=== PATIENT | male | born 1955 | race African-American/Black ===

== ENCOUNTER 2019-06-03 23:02 | Emergency (ER) | payer OTHER, SELFPAY ==
--- NOTE | ~2019-06-03 | XR_ITS ---
EXAMINATION: XR shoulder LT min 2V EXAM DATE: 06/03/2019 23:52 INDICATION: No known recent injury provided at this time. Pain of the left shoulder. TECHNIQUE: The following left shoulder projections obtained: frontal projection with internal rotatio n, frontal projection with external rotation, Grashey, and scapular Y view (4+ views). There is no p rior study for comparison. FINDINGS: No evidence of left shoulder rotator cuff calcific tendinosis. There is mild to moderate g lenohumeral, moderate acromioclavicular joint primary osteoarthritis. There are no acute fractures or dislocations identified. There is no subcutaneous gas. The soft tissue is unremarkable. There ar e no radiopaque foreign bodies. IMPRESSION: Left shoulder osteoarthritis, moderate the acromioclavicular joint. Reviewed, dictated and finalized at location A. 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
[2019-06-03 23:35] VITALS: BP 136/52; PULSE 75; RESP 20; TEMP 36.7; O2SAT 99
--- NOTE | 2019-06-04 00:35 | ED.UPPEXIN ---
HPI - Extremity Injury (Upper) General Chief Complaint: Extremity Injury, Upper Stated Complaint: Left Shoulder Pain Time Seen by Provider: 06/04/19 00:22 Source: patient and RN notes reviewed Mode of arrival: ambulatory Limitations: no limitations History of Present Illness HPI narrative: Pt is a 64 y/o male presenting to the ED c/o shoulder pain. Pt reports he injured his lt shoulder while throwing a garbage bag into a dumpster last Thursday. Pt states there is significant pain with ROM of his lt shoulder. 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 HEAD: Normocephalic, atraumatic. EYES: PERRLA and EOMI. ENT: Nares clear, Mucous membranes moist. NECK: Supple. CHEST: Clear to auscultation. No respiratory distress. HEART: Regular rate and rhythm. No murmur heard. Normal peripheral pulses. EXTREMITIES: Painful ROM of the left shoulder SKIN: Warm, dry, no rash. NEURO: No focal deficits. Alert and oriented x3. PSYCH: Normal mood and affect. Course Course Emergency Course: informed pt about his Xray findings , advised him to take pain medications as prescribed ,follow with his PMD Vital Signs Vital signs: Vital Signs Temperature 36.7 C 06/03/19 23:35 Pulse Rate 75 06/03/19 23:35 Respiratory Rate 20 06/03/19 23:35 Blood Pressure 136/52 L 06/03/19 23:35 Pulse Oximetry 99 06/03/19 23:35 Temperature 36.7 C 06/03/19 23:35 Pulse Rate 75 06/03/19 23:35 Respiratory Rate 20 06/03/19 23:35 Blood Pressure 136/52 L 06/03/19 23:35 Pulse Oximetry 99 06/03/19 23:35 MDM - Extremity Injury (Upper) Imaging Data Radiologist's impression: ITS Impressions Shoulder X-Ray 06/03/19 23:55 IMPRESSION: Left shoulder osteoarthritis, moderate the acromioclavicular joint. Discharge Plan Discharge Clinical Impression: Left shoulder strain Patient Disposition: Home, Self-Care Condition: Stable Instructions: Arthralgia (ED) Prescriptions: New naproxen [Naprosyn] 500 mg tablet 500 mg PO BID Qty: 20 RF: 0 No Action lisinopril 5 mg tablet 5 mg PO DAILY Qty: 90 RF: 0 glimepiride 4 mg tablet 4 mg PO .TWICE DAILY Qty: 60 RF: 5 metformin 1,000 mg tablet 1,000 mg PO BID Qty: 60 RF: 5 Lantus U-100 Insulin 100 unit/mL solution 10 unit SUB-Q .QHS Qty: 10 RF: 0 (DME) pen needle, diabetic [BD Ultra-Fine Mini Pen Needle] 31 gauge x 3/16 needle See Rx Instructions .ROUTE .MEDSUPPLY Qty: 100 RF: 0 sildenafil [Viagra] 50 mg tablet 50 mg PO DAILY PRN (Reason: sexual activity) Qty: 5 RF: 0 Follow-up/Referrals: Grzegorz Perales MD [Primary Care Provider] - Time of Disposition: 00:44
== END 2019-06-04 00:50 | disposition home or self-care (01) ==
PROVIDERS: Emergency Provider Family Medicine; PCP Family Medicine
DX: S46.912A Strain of unspecified muscle, fascia and tendon at shoulder and upper arm level, left arm, initial encounter (principal); E11.65 Type 2 diabetes mellitus with hyperglycemia; I10 Essential (primary) hypertension; Z79.4 Long term (current) use of insulin; Z79.84 Long term (current) use of oral hypoglycemic drugs; M19.012 Primary osteoarthritis, left shoulder; X50.9XXA Other and unspecified overexertion or strenuous movements or postures, initial encounter
CPT/HCPCS: 73030; 99283

== ENCOUNTER 2019-06-21 09:29 | Outpatient (CLI) | payer OTHER, SELFPAY ==
[2019-06-21 10:00] LABS: Basophils Percent Auto 0.5 % (0.2-1.2); Eosinophils Absolute Auto 0.2 K/mm3 (0-0.3); Eosinophils Percent Auto 2.1 % (0-4.4); Hematocrit 41.9 % (42.0-52.0); Immature Granulocyte Absolute 0.02 K/mm3 (0.00-0.031); Immature Granulocyte Percent A 0.3 % (0-0.5); Lymphocytes Absolute Auto 2.16 K/mm3 (0.9-3.2); Mean Corpuscular HGB Conc 33.4 g/dl (32-36); Mean Corpuscular Hemoglobin 31.1 pg (26-34); Mean Corpuscular Volume 93.1 fl (80-100); Mean Platelet Volume 10.9 fl (7.4-10.4); Monocytes Absolute Auto 0.8 K/mm3 (0.1-0.6); Monocytes Percent Auto 10.7 % (2.6-8.5); Neutrophils Absolute Auto 4.3 K/mm3 (1.3-6.7); Neutrophils Percent Auto 57.4 % (45.5-73.1); Platelet Count Result 160 k/mm3 (150-375); Red Cell Distribution Width 12.6 % (11.5-14.5); White Blood Count 7.5 K/mm3 (4.5-10.0)
[2019-06-21 10:10] LABS: Hemoglobin A1C 10.6 % (<5.7)
[2019-06-21 10:12] LABS: Alanine Aminotransferase 25 U/L (4-50); Albumin Level 3.8 g/dL (3.5-5.1); Alkaline Phosphatase 82 U/L (38-126); Aspartate Amino Transferase 30 U/L (17-59); Bilirubin,Total 0.3 mg/dL (0.2-1.3); Blood Urea Nitrogen 12 mg/dL (9-20); Calcium 8.7 mg/dL (8.4-10.2); Carbon Dioxide 25 mmol/L (22-30); Chloride 103 mmol/L (98-107); Estimated Glomerular Filt Rate > 60; Glucose 295 mg/dL (75-110); Sodium 137 mmol/L (137-145)
[2019-06-21 10:35] LABS: Iron 99 ug/dL (49-181)
[2019-06-21 10:46] LABS: Percent Iron Saturation 34 % (20-50)
[2019-06-21 11:18] LABS: Folic Acid 8.5 ng/mL (2.76->20)
== END 2019-06-21 09:30 | disposition home or self-care (01) ==
PROVIDERS: PCP Family Medicine; Visit Provider Physician Assistant
DX: D64.9 Anemia, unspecified (principal); E11.65 Type 2 diabetes mellitus with hyperglycemia; I10 Essential (primary) hypertension
CPT/HCPCS: 36415; 80053; 82607; 82728; 82746; 83036; 83540; 83550; 85025

== ENCOUNTER 2019-10-04 13:59 | Outpatient (RCR) | payer OTHER, SELFPAY | END 2020-01-02 23:59 | disposition home or self-care (01) | LOC: ANHDMC 13:59 | PROVIDERS: PCP Family Medicine; Visit Provider Family Medicine | DX: E11.9 Type 2 diabetes mellitus without complications (principal); Z71.89 Other specified counseling; Z79.84 Long term (current) use of oral hypoglycemic drugs | CPT/HCPCS: G0108 ==

== ENCOUNTER 2019-10-21 08:04 | Outpatient (CLI) | payer OTHER, SELFPAY ==
[2019-10-21 08:54] LABS: Basophils Absolute Auto 0.1 K/mm3 (0.0-0.1); Basophils Percent Auto 0.7 % (0.2-1.2); Eosinophils Absolute Auto 0.1 K/mm3 (0-0.3); Eosinophils Percent Auto 1.4 % (0-4.4); Hemoglobin 13.3 g/dL (14.0-18.0); Immature Granulocyte Absolute 0.02 K/mm3 (0.00-0.031); Immature Granulocyte Percent A 0.3 % (0-0.5); Lymphocytes Percent Auto 34.2 % (18.3-44.2); Mean Corpuscular HGB Conc 33.3 g/dl (32-36); Mean Corpuscular Hemoglobin 30.9 pg (26-34); Mean Corpuscular Volume 92.8 fl (80-100); Monocytes Absolute Auto 0.6 K/mm3 (0.1-0.6); Monocytes Percent Auto 7.7 % (2.6-8.5); Neutrophils Absolute Auto 4.1 K/mm3 (1.3-6.7); Neutrophils Percent Auto 55.7 % (45.5-73.1); Platelet Count Result 168 k/mm3 (150-375); Red Blood Count 4.31 M/mm3 (4.6-6.20); White Blood Count 7.3 K/mm3 (4.5-10.0)
[2019-10-21 09:08] LABS: Hemoglobin A1C 10.6 % (<5.7)
[2019-10-21 09:16] LABS: Alanine Aminotransferase 16 U/L (4-50); Alkaline Phosphatase 86 U/L (38-126); Anion Gap 12.9 mmol/L (7-16); Aspartate Amino Transferase 22 U/L (17-59); Bilirubin,Total 0.3 mg/dL (0.2-1.3); Blood Urea Nitrogen 9 mg/dL (9-20); Calcium 8.6 mg/dL (8.4-10.2); Carbon Dioxide 25 mmol/L (22-30); Chloride 104 mmol/L (98-107); Estimated Glomerular Filt Rate > 60; Glucose 271 mg/dL (75-110); Potassium 3.9 mmol/L (3.4-5.0); Sodium 138 mmol/L (137-145)
== END 2019-10-21 08:05 | disposition home or self-care (01) ==
PROVIDERS: PCP Family Medicine; Visit Provider Physician Assistant
DX: D64.9 Anemia, unspecified (principal); E11.65 Type 2 diabetes mellitus with hyperglycemia; I10 Essential (primary) hypertension
CPT/HCPCS: 36415; 80053; 83036; 85025

== ENCOUNTER 2019-10-31 01:38 | Outpatient (CLI) | payer OTHER, SELFPAY ==
[2019-10-31 16:16] LABS: SARS-CoV-2 RNA PCR Negative
== END 2019-10-31 01:39 | disposition home or self-care (01) ==
LOC: ANHCOVIDDT 01:38
PROVIDERS: PCP Family Medicine; Visit Provider Internal Medicine Gastroenterology
DX: Z01.812 Encounter for preprocedural laboratory examination (principal); Z11.59 Encounter for screening for other viral diseases
CPT/HCPCS: 87635; C9803; U0003

== ENCOUNTER 2019-11-02 01:00 | Day surgery (SDC) | payer OTHER, SELFPAY ==
[2019-10-25 14:32] VITALS: BMI 22.4
[2019-11-02 09:55] VITALS: BP 148/76; PULSE 65; TEMP 36.8; O2SAT 100
[2019-11-02] MEDS: LACTATED RINGERS 1,000 ML 150 ML IV CONT (10:06)
--- NOTE | 2019-11-02 10:06 | WPDANESEPPF ---
Anes - Initial Pre Proc Eval Procedure: Operation Date: 11/02/19 10:30 Proposed Procedures p Colonoscopy - Mark Tinajero MD Date/Time: 11/02/19 10:06 Surgeon: Mark Tinajero MD Pre Op Diagnosis: anemia Patient Data Age: 64 Gender: M Height: 5 ft 7 in Weight: 63.5 kg Last Vital Signs Temp 98.3 F 11/02/19 09:55 Pulse 65 11/02/19 09:55 BP 148/76 H 11/02/19 09:55 Pulse Ox 100 11/02/19 09:55 Allergies Allergy/AdvReac Type Severity Reaction Status Date / Time No Known Allergies Allergy Verified 10/25/19 14:30 Home Medications Medication Instructions Recorded Confirmed Type glimepiride 4 mg tablet 4 mg PO .TWICE DAILY #60 tablet 03/03/19 10/25/19 Rx metformin 1,000 mg tablet 1,000 mg PO BID #60 tablet 03/03/19 10/25/19 Rx lisinopril 5 mg tablet 5 mg PO DAILY #90 tablet 06/14/19 10/25/19 Rx rosuvastatin 5 mg tablet 5 mg PO DAILY #90 tablet 10/20/19 10/25/19 Rx sildenafil 50 mg tablet 50 mg PO DAILY PRN #7 tablet 10/20/19 10/25/19 Rx Patient hx anesthesia problems: none Family hx anesthesia problems: none PMFSH Past Medical History Medical History (Updated 11/02/19 @ 10:06 by Rosas Muller MD) Anemia Erectile dysfunction Essential hypertension Type 2 diabetes mellitus with hyperglycemia Surgical History Surgical History No significant past surgical history Social History Social History Smoking status: Never smoker Alcohol intake: never Substance use: never Substance use type: does not use Gender identity (if verbalized by the patient): Male Anes - Eval Final PreProcedure Day of Procedure 11/02/19 10:06 Patient weight: normal Heart: regular rate and rhythm Lungs: clear to auscultation Airway: Mallampati scale class II Neurological: alert and oriented Last oral intake: >/= 8 hours ASA classification: III Emergent: no Anesthetic plan: proceed Anesthesia type and monitoring: general GIVS and standard monitoring Informed Consent: The patient's anesthetic plan and its attendant risks and benefits were discussed with the patient/family/POA. Questions were solicited and answers provided to the satisfaction of the patient/family/POA.
[2019-11-02 10:09] LABS: Glucose Point of Care 217 (65-105)
--- NOTE | 2019-11-02 10:18 | P.HP_ITS ---
History of Present Illness History of Present Illness Consent: Risks, benefits, and alternatives have been discussed and questions answered. Patient agrees to proceed with procedure. Chief complaint: anemia Narrative: Chris Aguilar is a 64 year old male here for screening colonoscopy. He has been found to be anemic. His last colonoscopy was about 10 years ago [facility] Past Medical History Medical History Anemia Erectile dysfunction Essential hypertension Type 2 diabetes mellitus with hyperglycemia Surgical History Surgical History No significant past surgical history Social History Social History Smoking status: Never smoker Alcohol intake: never Substance use: never Substance use type: does not use Gender identity (if verbalized by the patient): Male Meds Home Medications and Allergies Home Medications Medication Instructions Recorded Confirmed Type glimepiride 4 mg tablet 4 mg PO .TWICE DAILY #60 tablet 03/03/19 10/25/19 Rx metformin 1,000 mg tablet 1,000 mg PO BID #60 tablet 03/03/19 10/25/19 Rx lisinopril 5 mg tablet 5 mg PO DAILY #90 tablet 06/14/19 10/25/19 Rx rosuvastatin 5 mg tablet 5 mg PO DAILY #90 tablet 10/20/19 10/25/19 Rx sildenafil 50 mg tablet 50 mg PO DAILY PRN #7 tablet 10/20/19 10/25/19 Rx Allergies Allergy/AdvReac Type Severity Reaction Status Date / Time No Known Allergies Allergy Verified 10/25/19 14:30 Vital Signs Vital Signs - 24 hr 11/02/19 09:55 Temperature 36.8 C Pulse Rate 65 Blood Pressure 148/76 H Pulse Oximetry 100 Exam Resp: Auscultation: clear to auscultation bilaterally Cardio: Rate: regular rate Rhythm: regular rhythm GI: GI Palp: Yes Soft to palpation and No Tenderness to palpation present (GI) Assessment and Plan Assessment and plan (1) Colon cancer screening: Code(s): Z12.11 - Encounter for screening for malignant neoplasm of colon Status: Acute Assessment and Plan: Colonoscopy with possible biopsy or polypectomy or cautery or injection of substances.
[2019-11-02 10:44] VITALS: BP 96/65; PULSE 78; RESP 26; O2SAT 99
[2019-11-02 10:54] VITALS: BP 94/63; PULSE 72; RESP 25; O2SAT 98
[2019-11-02 11:04] VITALS: BP 107/67; PULSE 64; RESP 23; O2SAT 98
== END 2019-11-02 11:29 | disposition home or self-care (01) ==
PROVIDERS: PCP Family Medicine; Visit Provider Internal Medicine Gastroenterology
PROC: 0DJD8ZZ Inspection of Lower Intestinal Tract, Via Natural or Artificial Opening Endoscopic (ICD-10-PCS; CPT 45378; principal; 2019-11-02 10:30)
DX: Z12.11 Encounter for screening for malignant neoplasm of colon (principal); D64.9 Anemia, unspecified; I10 Essential (primary) hypertension; E11.9 Type 2 diabetes mellitus without complications; N52.9 Male erectile dysfunction, unspecified; Z79.84 Long term (current) use of oral hypoglycemic drugs
CPT/HCPCS: 45378; J2704; J7120

== ENCOUNTER 2020-01-12 09:15 | Outpatient (RCR) | payer OTHER, SELFPAY | END 2020-03-14 13:43 | disposition home or self-care (01) | LOC: ANHDMC 09:15 | PROVIDERS: PCP Family Medicine; Visit Provider Family Medicine | DX: E11.9 Type 2 diabetes mellitus without complications (principal); Z71.89 Other specified counseling | CPT/HCPCS: G0108 ==

== ENCOUNTER 2020-03-21 09:29 | Outpatient (CLI) | payer OTHER, SELFPAY ==
[2020-03-21 10:02] LABS: Hematocrit 39.6 % (42.0-52.0); Hemoglobin 13.5 g/dL (14.0-18.0); Mean Corpuscular HGB Conc 34.1 g/dl (32-36); Mean Corpuscular Volume 93.8 fl (80-100); Mean Platelet Volume 10.6 fl (7.4-10.4); Platelet Count Result 175 k/mm3 (150-375); Red Blood Count 4.22 M/mm3 (4.6-6.20); Red Cell Distribution Width 12.5 % (11.5-14.5)
[2020-03-21 10:17] LABS: Alanine Aminotransferase 13 U/L (4-50); Albumin Level 3.6 g/dL (3.5-5.1); Alkaline Phosphatase 75 U/L (38-126); Anion Gap 6 mmol/L (8-16); Aspartate Amino Transferase 22 U/L (17-59); Bilirubin,Total 0.3 mg/dL (0.2-1.3); Blood Urea Nitrogen 9 mg/dL (9-20); Calcium 8.5 mg/dL (8.4-10.2); Carbon Dioxide 29 mmol/L (22-30); Chloride 105 mmol/L (98-107); Estimated Glomerular Filt Rate > 60; Glucose 167 mg/dL (75-110); Sodium 140 mmol/L (137-145)
== END 2020-03-21 09:30 | disposition home or self-care (01) ==
LOC: ANHLAB 09:34
PROVIDERS: PCP Family Medicine; Visit Provider Family Medicine
DX: E11.65 Type 2 diabetes mellitus with hyperglycemia (principal); D64.9 Anemia, unspecified
CPT/HCPCS: 36415; 80053; 83036; 85027

== ENCOUNTER 2020-09-15 08:05 | Outpatient (CLI) | payer OTHER, SELFPAY ==
[2020-09-15 08:57] LABS: Hemoglobin A1C 9.7 % (<5.7)
[2020-09-15 08:58] LABS: Alanine Aminotransferase 16 U/L (4-50); Albumin Level 4.1 g/dL (3.5-5.1); Alkaline Phosphatase 92 U/L (38-126); Anion Gap 7 mmol/L (8-16); Aspartate Amino Transferase 26 U/L (17-59); Bilirubin,Total 0.3 mg/dL (0.2-1.3); Blood Urea Nitrogen 10 mg/dL (9-20); Carbon Dioxide 31 mmol/L (22-30); Chloride 104 mmol/L (98-107); Estimated Glomerular Filt Rate > 60; Glucose 230 mg/dL (75-110); Potassium 3.9 mmol/L (3.4-5.0); Sodium 142 mmol/L (137-145)
== END 2020-09-15 08:06 | disposition home or self-care (01) ==
LOC: ANHLAB 08:08
PROVIDERS: PCP Family Medicine; Visit Provider Physician Assistant
DX: E11.65 Type 2 diabetes mellitus with hyperglycemia (principal); I10 Essential (primary) hypertension
CPT/HCPCS: 36415; 80053; 83036

== ENCOUNTER 2021-01-17 08:04 | Outpatient (CLI) | payer OTHER, SELFPAY ==
[2021-01-17 08:33] LABS: Basophils Percent Auto 0.5 % (0.2-1.2); Eosinophils Absolute Auto 0.2 K/mm3 (0-0.3); Eosinophils Percent Auto 1.9 % (0-4.4); Hematocrit 42.8 % (42.0-52.0); Hemoglobin 14.1 g/dL (14.0-18.0); Immature Granulocyte Absolute 0.02 K/mm3 (0.00-0.031); Immature Granulocyte Percent A 0.2 % (0-0.5); Lymphocytes Absolute Auto 2.62 K/mm3 (0.9-3.2); Lymphocytes Percent Auto 32.5 % (18.3-44.2); Mean Corpuscular HGB Conc 32.9 g/dl (32-36); Mean Corpuscular Hemoglobin 31.5 pg (26-34); Mean Corpuscular Volume 95.7 fl (80-100); Mean Platelet Volume 10.6 fl (7.4-10.4); Monocytes Absolute Auto 0.6 K/mm3 (0.1-0.6); Monocytes Percent Auto 7.8 % (2.6-8.5); Neutrophils Absolute Auto 4.6 K/mm3 (1.3-6.7); Neutrophils Percent Auto 57.1 % (45.5-73.1); Platelet Count Result 194 k/mm3 (150-375); Red Blood Count 4.47 M/mm3 (4.6-6.20); Red Cell Distribution Width 13.2 % (11.5-14.5); White Blood Count 8.1 K/mm3 (4.5-10.0)
[2021-01-17 08:36] LABS: Add Urine Microscopic? YES; Appearance Urine Clear (Clear); Bilirubin Urine Negative (Negative); Blood Urine Negative (Negative); Color Urine Straw (Yellow); Glucose Urine UA 3+ mg/dL (Negative); Ketones Urine Negative (Negative); Leukocyte Esterase Ur Negative LEU/UL (NEGATIVE); Nitrate Urine Negative (Negative); Protein Urine Negative (Negative); RBC Urine 0-2 /hpf (0-2); Urobilinogen Urine Negative mg/dL (<2.0); WBC Urine 0-3 /hpf (0-3)
[2021-01-17 08:45] LABS: Alanine Aminotransferase 21 U/L (4-50); Alkaline Phosphatase 92 U/L (38-126); Anion Gap 10 mmol/L (8-16); Aspartate Amino Transferase 25 U/L (17-59); Bilirubin,Total 0.5 mg/dL (0.2-1.3); Blood Urea Nitrogen 9 mg/dL (9-20); Calcium 9.1 mg/dL (8.4-10.2); Carbon Dioxide 29 mmol/L (22-30); Chloride 103 mmol/L (98-107); Cholesterol 206 mg/dL (0-200); Estimated Glomerular Filt Rate > 60; Glucose 227 mg/dL (65-110); HDL Direct 45 mg/dL; Sodium 142 mmol/L (137-145); Triglycerides 109 mg/dL (<150)
[2021-01-17 08:55] LABS: LDL Cholesterol Direct 124 mg/dL
[2021-01-17 08:55] LABS: Specific Grav Ur 1.033 (1.001-1.035)
[2021-01-17 09:15] LABS: Prostate Specific Antigen 3.5 ng/mL (< OR = 4.0)
[2021-01-17 09:21] LABS: Hemoglobin A1C 11.3 % (<5.7)
[2021-01-17 09:48] LABS: Creatinine Urine 92.7 mg/dL
[2021-01-17 09:53] LABS: Microalbumin Urine Random 21.3 mg/L (0-16.7)
== END 2021-01-17 08:05 | disposition home or self-care (01) ==
PROVIDERS: PCP Family Medicine; Visit Provider Physician Assistant
DX: Z00.00 Encounter for general adult medical examination without abnormal findings (principal); D64.9 Anemia, unspecified; E11.65 Type 2 diabetes mellitus with hyperglycemia; I10 Essential (primary) hypertension; N52.9 Male erectile dysfunction, unspecified; R35.0 Frequency of micturition
CPT/HCPCS: 36415; 80053; 80061; 81001; 82043; 83036; 84153; 84443; 85025; 87086

== ENCOUNTER 2021-02-16 06:13 | Emergency (ER) | payer OTHER, SELFPAY ==
--- NOTE | ~2021-02-16 | XR_ITS ---
EXAMINATION: XR foot RT 2V EXAM DATE: 02/16/2021 07:13 INDICATION: Evaluate osteomyelitis 1st digit. TECHNIQUE: Frontal and lateral projections of the right foot. There is no prior study for compariso n. FINDINGS: There are no bony erosions identified. There are no acute right foot fractures or dislocat ions identified. There is no subcutaneous gas. There are arterial calcifications, arteriosclerosis. There are no radiopaque foreign bodies. There is mild right 1st metatarsophalangeal joint primary osteoarthritis. 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 IMPRESSION: Chronic findings as above. Reviewed, dictated and finalized at location A. 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
[2021-02-16 06:16] VITALS: BP 142/66; PULSE 70; RESP 18; TEMP 35.9; O2SAT 100
[2021-02-16 06:30] VITALS: PULSE 81; RESP 18; TEMP 36.7; O2SAT 97
[2021-02-16 06:36] VITALS: BP 125/72; PULSE 62
--- NOTE | 2021-02-16 07:07 | ED.WOUNDLAC ---
HPI - Wound/Laceration General Chief Complaint: Wound/Laceration <Howard Hill MD - Last Filed: 02/16/21 07:27> Stated Complaint: right great toe pain <Howard Hill MD - Last Filed: 02/16/21 07:27> Time Seen by Provider: 02/16/21 07:04 <Howard Hill MD - Last Filed: 02/16/21 07:27> Source: patient <Howard Hill MD - Last Filed: 02/16/21 07:27> History of Present Illness HPI narrative: Patient presents with right great toe pain. Reports he had a pedicure approximately 2 weeks ago ever since then he has had toe pain which is getting progressively worse. He was concerned he has a history of diabetes. Pain is achy sharp, worse with walking around, no radiation. Denies any fevers, nausea, vomiting. <Howard Hill MD - Last Filed: 02/16/21 07:27> Related Data Allergies/Adverse Reactions: Allergies Allergy/AdvReac Type Severity Reaction Status Date / Time No Known Allergies Allergy Verified 01/17/21 07:35 <Howard Hill MD - Last Filed: 02/16/21 07:27> Review of Systems Review of Systems: CONSTITUTIONAL: Denies fever, chills, or sweats. EYES: Denies visual changes, redness, or discharge. ENT: Denies rhinorrhea, congestion, sore throat, or otalgia. CARDIOVASCULAR: Denies chest pain, palpitations, or edema. RESPIRATORY: Denies cough or dyspnea. GASTROINTESTINAL: Denies abdominal pain, nausea, vomiting, or diarrhea. GENITOURINARY: Denies dysuria or hematuria. SKIN: Denies rash or itching. MUSCULOSKELETAL: Denies back pain, or myalgia. NEUROLOGIC: Denies headache, numbness, dizziness, or weakness. PSYCHIATRIC: Denies anxiety or depression. <Howard Hill MD - Last Filed: 02/16/21 07:27> All systems reviewed & are unremarkable except as noted in HPI and below <Howard Hill MD - Last Filed: 02/16/21 07:27> PMFSH Past Medical History Medical History: Medical History Anemia Erectile dysfunction Essential hypertension Type 2 diabetes mellitus with hyperglycemia <Howard Hill MD - Last Filed: 02/16/21 07:27> Surgical History Surgical History: Surgical History No significant past surgical history <Howard Hill MD - Last Filed: 02/16/21 07:27> Family History Family History: Family History Father Diabetes mellitus Mother Diabetes mellitus Sibling Diabetes mellitus <Howard Hill MD - Last Filed: 02/16/21 07:27> Social History Social History: Social History Second hand tobacco smoke exposure: No Alcohol intake: never Substance use: never Substance use type: does not use Gender identity (if verbalized by the patient): Male Sexual Orientation (if Verbalized by the Patient): Straight or Heterosexual <Howard Hill MD - Last Filed: 02/16/21 07:27> Exam Narrative: GENERAL: Well-appearing, well-nourished, and in no acute distress. HEAD: Normocephalic, atraumatic. EYES: PERRLA and EOMI. ENT: Nares clear, no rhinorrhea or epistaxis. Mucous membranes moist. NECK: Supple. No masses. No JVD EXTREMITIES: Minor swelling and erythema to the medial aspect of the right great toe SKIN: Warm, dry, no rash. NEURO: No focal deficits. Alert and oriented x3. PSYCH: Normal mood and affect. <Howard Hill MD - Last Filed: 02/16/21 07:27> Course Reevaluation(s) Reevaluation #1: Exam is most concerning for paronychia labs imaging ordered to evaluate for osteomyelitis given patient's history of diabetes and duration of symptoms. Needle aspiration attempted there is no purulent drainage returned. Patient likely appropriate for outpatient antibiotics and follow-up with podiatry. Patient signed out to Dr. Fox pending labs and imaging <Howard Hill MD - Last Filed: 02/16/21 07:27>
[2021-02-16 07:26] LABS: Basophils Absolute Auto 0.1 K/mm3 (0.0-0.1); Basophils Percent Auto 0.7 % (0.2-1.2); Eosinophils Absolute Auto 0.2 K/mm3 (0-0.3); Eosinophils Percent Auto 2.1 % (0-4.4); Hematocrit 36.4 % (42.0-52.0); Hemoglobin 12.3 g/dL (14.0-18.0); Immature Granulocyte Absolute 0.01 K/mm3 (0.00-0.031); Immature Granulocyte Percent A 0.1 % (0-0.5); Lymphocytes Absolute Auto 2.59 K/mm3 (0.9-3.2); Lymphocytes Percent Auto 35.9 % (18.3-44.2); Mean Corpuscular HGB Conc 33.8 g/dl (32-36); Mean Corpuscular Hemoglobin 32.1 pg (26-34); Mean Platelet Volume 10.4 fl (7.4-10.4); Monocytes Absolute Auto 0.7 K/mm3 (0.1-0.6); Monocytes Percent Auto 9.7 % (2.6-8.5); Neutrophils Absolute Auto 3.7 K/mm3 (1.3-6.7); Neutrophils Percent Auto 51.5 % (45.5-73.1); Platelet Count Result 163 k/mm3 (150-375); Red Blood Count 3.83 M/mm3 (4.6-6.20); White Blood Count 7.2 K/mm3 (4.5-10.0)
[2021-02-16 07:46] LABS: Alanine Aminotransferase 15 U/L (4-50); Albumin Level 3.6 g/dL (3.5-5.1); Alkaline Phosphatase 70 U/L (38-126); Anion Gap 5 mmol/L (8-16); Aspartate Amino Transferase 23 U/L (17-59); Bilirubin,Total 0.2 mg/dL (0.2-1.3); Blood Urea Nitrogen 13 mg/dL (9-20); CRP < 0.5 mg/dL (<1.0); Calcium 8.8 mg/dL (8.4-10.2); Carbon Dioxide 25 mmol/L (22-30); Chloride 104 mmol/L (98-107); Estimated CRCL calculation 76 ml/min; Estimated Glomerular Filt Rate > 60; Glucose 190 mg/dL (65-110); Potassium 3.8 mmol/L (3.4-5.0); Sodium 134 mmol/L (137-145)
[2021-02-16 08:23] LABS: Erythrocyte Sedimentation Rate 33 mm/hr (0-20)
== END 2021-02-16 08:15 | disposition home or self-care (01) ==
PROVIDERS: Emergency Provider Emergency Medicine; PCP Family Medicine
DX: L03.031 Cellulitis of right toe (principal); I10 Essential (primary) hypertension; E11.9 Type 2 diabetes mellitus without complications; D64.9 Anemia, unspecified; Z79.84 Long term (current) use of oral hypoglycemic drugs
CPT/HCPCS: 10160; 36415; 73620; 80053; 85025; 85652; 86140; 99283

== ENCOUNTER 2021-06-08 07:44 | Outpatient (CLI) | payer OTHER, SELFPAY ==
[2021-06-08 08:53] LABS: Alanine Aminotransferase 16 U/L (4-50); Albumin Level 3.7 g/dL (3.5-5.1); Alkaline Phosphatase 77 U/L (38-126); Anion Gap 3 mmol/L (8-16); Aspartate Amino Transferase 24 U/L (17-59); Bilirubin,Total 0.2 mg/dL (0.2-1.3); Blood Urea Nitrogen 13 mg/dL (9-20); Calcium 8.5 mg/dL (8.4-10.2); Carbon Dioxide 28 mmol/L (22-30); Chloride 107 mmol/L (98-107); Estimated Glomerular Filt Rate > 60; Glucose 214 mg/dL (65-110); Potassium 3.9 mmol/L (3.4-5.0); Sodium 138 mmol/L (137-145)
[2021-06-08 10:00] LABS: Hemoglobin A1C 10.3 % (<5.7)
== END 2021-06-08 07:45 | disposition home or self-care (01) ==
PROVIDERS: PCP Family Medicine; Visit Provider Physician Assistant
DX: E11.65 Type 2 diabetes mellitus with hyperglycemia (principal); I10 Essential (primary) hypertension
CPT/HCPCS: 36415; 80053; 83036

== ENCOUNTER 2021-06-27 07:32 | Outpatient (CLI) | payer OTHER, SELFPAY ==
[2021-06-27 08:55] LABS: Anion Gap 9 mmol/L (8-16); Blood Urea Nitrogen 14 mg/dL (9-20); Calcium 8.6 mg/dL (8.4-10.2); Carbon Dioxide 26 mmol/L (22-30); Chloride 104 mmol/L (98-107); Estimated Glomerular Filt Rate > 60; Glucose 105 mg/dL (65-110); Sodium 139 mmol/L (137-145)
[2021-06-30 08:19] LABS: C-Peptide 0.77 ng/mL (0.80-3.85)
[2021-06-30 19:34] LABS: Glutamic acid decarboxylase AA <5 IU/mL (<5)
== END 2021-06-27 07:33 | disposition home or self-care (01) ==
LOC: ANHLAB 07:34
PROVIDERS: PCP Family Medicine; Visit Provider Internal Medicine Endocrinology, Diabetes & Metabolism
DX: E11.65 Type 2 diabetes mellitus with hyperglycemia (principal); Z71.3 Dietary counseling and surveillance; E78.5 Hyperlipidemia, unspecified; I10 Essential (primary) hypertension
CPT/HCPCS: 36415; 80048; 84681; 86341

== ENCOUNTER 2021-07-19 08:28 | Emergency (ER) | payer OTHER, SELFPAY ==
[2021-07-19] VITALS (7 sets, daily range): BP systolic 125–162; BP diastolic 70–109; PULSE 55–74; RESP 12–20; TEMP 37; O2SAT 100
--- NOTE | ~2021-07-19 | XR_ITS ---
EXAMINATION: XR chest 2V EXAM DATE: 07/19/2021 09:01 INDICATION: Dizziness, headache, nausea. Hx of HTN . TECHNIQUE: Frontal and lateral projections of the chest obtained and reviewed. Comparison is made to prior examination from 03/10/2018. FINDINGS: The lungs are clear. There are no pleural effusions. The cardiomediastinal silhouette is within normal limits. There is no pneumothorax suspected. The bones and soft tissues are unremarkab le. IMPRESSION: Unremarkable chest x-ray exam. Reviewed, dictated and finalized at location A.
--- NOTE | ~2021-07-19 | CT_ITS ---
EXAMINATION: CT brain wo [facility] EXAM DATE: 07/19/2021 10:15 INDICATION: Dizziness, HOLCOMB, night sweats. TECHNIQUE: Spiral CT of the head was performed without contrast. Axial, coronal and sagittal images were reviewed. The dose-length product (DLP) for this examination was 605.33 mGy-cm. The exposure w as tailored according to patient size, and iterative reconstruction (ASIR) was used as additional dos e reduction technique. There is no prior study for comparison. FINDINGS: There is no acute intraparenchymal hemorrhage. No evidence of intraparenchymal brain mass lesion. No evidence of acute infarction. There is no mass effect or midline shift. The ventricles are normal in size. There are no extra-axial collections. There are no acute calvarial fractures. P samir has had bilateral ocular lens surgery. Soft tissue is unremarkable. Only small portion of th e maxillary sinuses were imaged and there is evidence of right maxillary sinus mucoperiosteal thicken ing. IMPRESSION: 1. No acute intracranial findings. 2. Right maxillary sinus mucoperiosteal thickening. Reviewed, dictated and finalized at location A.
--- NOTE | 2021-07-19 08:43 | ECG_ITS ---
Measurements Intervals [place] Rate: 75 P: 51 FL: 178 QRS: 20 QRSD: 85 T: 5 QT: 375 QTc: 420 Interpretive Statements SINUS RHYTHM NORMAL ECG NO PREVIOUS ECG AVAILABLE FOR COMPARISON Electronically Signed On 07-19-2021 15:11:18 CDT by Sonido Reyes M.D.
--- NOTE | 2021-07-19 08:49 | PC.NURSE ---
Pt to XRAY via stretcher at this time.
[2021-07-19 08:59] LABS: Basophils Percent Auto 0.4 % (0.2-1.2); Eosinophils Absolute Auto 0.2 K/mm3 (0-0.3); Eosinophils Percent Auto 2.1 % (0-4.4); Hematocrit 41.5 % (42.0-52.0); Hemoglobin 13.6 g/dL (14.0-18.0); Immature Granulocyte Absolute 0.01 K/mm3 (0.00-0.031); Immature Granulocyte Percent A 0.1 % (0-0.5); Lymphocytes Absolute Auto 2.52 K/mm3 (0.9-3.2); Lymphocytes Percent Auto 34.6 % (18.3-44.2); Mean Corpuscular HGB Conc 32.8 g/dl (32-36); Mean Corpuscular Hemoglobin 31.3 pg (26-34); Mean Corpuscular Volume 95.6 fl (80-100); Mean Platelet Volume 10.6 fl (7.4-10.4); Monocytes Absolute Auto 0.8 K/mm3 (0.1-0.6); Neutrophils Absolute Auto 3.8 K/mm3 (1.3-6.7); Neutrophils Percent Auto 51.8 % (45.5-73.1); Platelet Count Result 190 k/mm3 (150-375); Red Blood Count 4.34 M/mm3 (4.6-6.20); Red Cell Distribution Width 13.3 % (11.5-14.5); White Blood Count 7.3 K/mm3 (4.5-10.0)
--- NOTE | 2021-07-19 09:00 | ED.DIZZY ---
HPI - Dizziness General Chief Complaint: Dizziness <HENRRY Bangura Last Filed: 07/19/21 17:33> Stated Complaint: dizziness/holcomb <HENRRY Bangura Last Filed: 07/19/21 17:33> Time Seen by Provider: 07/19/21 09:00 <HENRRY Bangura Last Filed: 07/19/21 17:33> Source: patient <HENRRY Bangura Last Filed: 07/19/21 17:33> Mode of arrival: ambulatory <HENRRY Bangura Last Filed: 07/19/21 17:33> Limitations: no limitations <HENRRY Bangura Last Filed: 07/19/21 17:33> History of Present Illness HPI Narrative: Patient is a 66 y/o male who presents to the ED with c/o dizziness, headache, chest pain. Patient reports having a headache and dizziness since Thursday. He states the headache began first and then he started to feel dizzy when standing up. He describes the dizziness as he feels lightheaded like he is off balance and going to fall, but he has not fallen. No recent injury. He states the headache has been mild. He has not tried anything for this. Patient also reports having intermittent brief chest pain for the past 1 week. He describes the pain as mild, midsternal, sharp, stating that it lasts about 1 minute at a time. He has not had pain every day. Denies any pain currently. Patient also denies any vision changes, shortness of breath, nausea, vomiting, abdominal pain, weakness, numbness, BLE pain or edema. He does mention he has been under increased stress lately with work and his brother passing away a few weeks ago. He also mentions his son 1 year. ago. He has been feeling slightly down and depressed recently, but he denies any severe symptoms, SI, or HI. <HENRRY Bangura Last Filed: 07/19/21 17:33> Related Data Allergies/Adverse Reactions: Allergies Allergy/AdvReac Type Severity Reaction Status Date / Time No Known Allergies Allergy Verified 07/19/21 08:42 <Delilah Segura PA-C - Last Filed: 07/19/21 17:33> Review of Systems Review of Systems: CONSTITUTIONAL: Denies fever, chills, or sweats. EYES: Denies visual changes. ENT: Denies rhinorrhea, congestion, sore throat, or otalgia. CARDIOVASCULAR: Reports intermittent midsternal CP. Denies BLE edema. RESPIRATORY: Denies dyspnea. GASTROINTESTINAL: Denies abdominal pain, nausea, vomiting, or diarrhea. MUSCULOSKELETAL: Denies back pain, joint pain, or myalgia. NEUROLOGIC: Reports dizziness, lightheadedness, HOLCOMB. Denies numbness, or weakness. PSYCHIATRIC: Reports depression. Denies SI, HI, AVH. <Delilah Segura PA-C - Last Filed: 07/19/21 17:33> All systems reviewed & are unremarkable except as noted in HPI and below <Delilah Segura PA-C - Last Filed: 07/19/21 17:33> [facility] Past Medical History Medical History: Medical History Anemia Erectile dysfunction Essential hypertension Type 2 diabetes mellitus with hyperglycemia <Delilah Segura PA-C - Last Filed: 07/19/21 17:33> Surgical History Surgical History: Surgical History History of cataract surgery Hx of appendectomy No significant past surgical history <Delilah Segura PA-C - Last Filed: 07/19/21 17:33> Family History Family History: Family History Father Diabetes mellitus Mother Diabetes mellitus Sibling Diabetes mellitus <Delilah Segura PA-C - Last Filed: 07/19/21 17:33> Social History Social History: Social History Smoking status: Never smoker Second hand tobacco smoke exposure: No Alcohol intake: never Substance use: never Substance use type: does not use Gender identity (if verbalized by the patient): Male Sexual Orientation (if Verbalized by the Patient): Straight or Heterosexual <Delilah Segura PA-C - Last Filed: 07/19/21 17:33> Exam Jorge
[2021-07-19 09:10] LABS: Partial Thromboplastin Time 25.7 SECONDS (22.3-36.8); Prothrombin Time 12.8 Seconds (11.1-14.7)
[2021-07-19 09:11] LABS: Alanine Aminotransferase 20 U/L (4-50); Albumin Level 4.2 g/dL (3.5-5.1); Alkaline Phosphatase 70 U/L (38-126); Anion Gap 9 mmol/L (8-16); Aspartate Amino Transferase 34 U/L (17-59); Bilirubin,Total 0.5 mg/dL (0.2-1.3); Blood Urea Nitrogen 12 mg/dL (9-20); Calcium 8.4 mg/dL (8.4-10.2); Carbon Dioxide 25 mmol/L (22-30); Chloride 107 mmol/L (98-107); Estimated CRCL calculation 65 ml/min; Estimated Glomerular Filt Rate > 60; Glucose 203 mg/dL (65-110); Lipase 253 U/L (23-300); Potassium 4.4 mmol/L (3.4-5.0); Sodium 141 mmol/L (137-145)
[2021-07-19 09:21] LABS: Troponin I < 0.012 ng/mL (0.000-0.034)
[2021-07-19] MEDS: ASPIRIN 81 MG CHEWABLE TABLET 324 MG PO (09:28)
[2021-07-19 10:14] LABS: Add Urine Microscopic? YES; Appearance Urine Clear (Clear); Bilirubin Urine Negative (Negative); Blood Urine 1+ (Negative); Color Urine Yellow (Yellow); Glucose Urine UA 3+ mg/dL (Negative); Ketones Urine Negative (Negative); Leukocyte Esterase Ur Negative LEU/UL (Negative); Mucus Urine Rare /lpf; Nitrate Urine Negative (Negative); Protein Urine Negative (Negative); RBC Urine 0-2 /hpf (0-2); Urobilinogen Urine Negative mg/dL (<2.0); WBC Urine 0-3 /hpf
[2021-07-19] MEDS: SODIUM CHLORIDE 0.9% IV 1,000 ML 999 ML IV CONT (10:19)
[2021-07-19 10:21] LABS: Specific Grav Ur 1.033 (1.001-1.035)
[2021-07-19 11:04] LABS: D Dimer 0.41 ug/mL (<0.48)
[2021-07-19 11:56] LABS: Troponin I < 0.012 ng/mL (0.000-0.034)
== END 2021-07-19 13:17 | disposition home or self-care (01) ==
PROVIDERS: Physician Assistant; Emergency Provider Emergency Medicine; PCP Family Medicine
DX: R51.9 Headache, unspecified (principal); R07.89 Other chest pain; E11.9 Type 2 diabetes mellitus without complications; I10 Essential (primary) hypertension; D64.9 Anemia, unspecified; Z98.49 Cataract extraction status, unspecified eye; Z79.4 Long term (current) use of insulin; Z79.84 Long term (current) use of oral hypoglycemic drugs
CPT/HCPCS: 36415; 70450; 71046; 80053; 81001; 83690; 84484; 85025; 85380; 85610; 85730; 93005; 96361; 96374; 99284; A9270; J0131; J7030

== ENCOUNTER 2021-12-13 09:08 | Outpatient (CLI) | payer MEDICARE, SELFPAY ==
[2021-12-13 09:53] LABS: Basophils Absolute Auto 0.1 K/mm3 (0.0-0.1); Basophils Percent Auto 0.7 % (0.2-1.2); Eosinophils Absolute Auto 0.2 K/mm3 (0-0.3); Eosinophils Percent Auto 2.3 % (0-4.4); Hematocrit 38.9 % (42.0-52.0); Hemoglobin 12.6 g/dL (14.0-18.0); Immature Granulocyte Absolute 0.02 K/mm3 (0.00-0.031); Immature Granulocyte Percent A 0.2 % (0-0.5); Lymphocytes Absolute Auto 2.54 K/mm3 (0.9-3.2); Lymphocytes Percent Auto 30.5 % (18.3-44.2); Mean Corpuscular HGB Conc 32.4 g/dl (32-36); Mean Corpuscular Hemoglobin 30.7 pg (26-34); Mean Corpuscular Volume 94.6 fl (80-100); Mean Platelet Volume 10.8 fl (7.4-10.4); Monocytes Absolute Auto 0.6 K/mm3 (0.1-0.6); Monocytes Percent Auto 7.7 % (2.6-8.5); Neutrophils Absolute Auto 4.9 K/mm3 (1.3-6.7); Neutrophils Percent Auto 58.6 % (45.5-73.1); Platelet Count Result 180 k/mm3 (150-375); Red Blood Count 4.11 M/mm3 (4.6-6.20); Red Cell Distribution Width 13.2 % (11.5-14.5); White Blood Count 8.3 K/mm3 (4.5-10.0)
[2021-12-13 10:00] LABS: Alanine Aminotransferase 17 U/L (6-50); Albumin Level 3.7 g/dL (3.5-5.1); Alkaline Phosphatase 77 U/L (38-126); Anion Gap 11 mmol/L (8-16); Aspartate Amino Transferase 23 U/L (17-59); Bilirubin,Total 0.3 mg/dL (0.2-1.3); Blood Urea Nitrogen 11 mg/dL (9-20); Calcium 8.7 mg/dL (8.4-10.2); Carbon Dioxide 24 mmol/L (22-30); Chloride 105 mmol/L (98-107); Cholesterol 175 mg/dL (0-200); Estimated Glomerular Filt Rate > 60; Glucose 220 mg/dL (65-110); HDL Direct 38 mg/dL; Sodium 140 mmol/L (137-145); Triglycerides 76 mg/dL (<150)
[2021-12-13 10:10] LABS: LDL Cholesterol Direct 107 mg/dL
[2021-12-13 10:46] LABS: Appearance Urine Clear (Clear); Bilirubin Urine Negative (Negative); Color Urine Yellow (Yellow); Glucose Urine UA 2+ mg/dL (Negative); Ketones Urine Trace mg/dL (Negative); Leukocyte Esterase Ur Negative LEU/UL (NEGATIVE); Nitrate Urine Negative (Negative); Protein Urine 1+ mg/dL (Negative); Specific Grav Ur 1.025 (1.001-1.035); Urobilinogen Urine 0.2 mg/dL (<2.0); pH Urine 5.5 (5.0-9.0)
[2021-12-13 10:53] LABS: Add Urine Microscopic? YES; Blood Urine Trace-Intact (Negative)
[2021-12-13 10:55] LABS: Mucus Urine Rare /lpf; RBC Urine 0-2 /hpf (0-2); WBC Urine 0-3 /hpf (0-3)
[2021-12-13 11:14] LABS: Creatinine Urine 234.2 mg/dL
[2021-12-13 11:15] LABS: Hemoglobin A1C 10.8 % (<5.7)
[2021-12-13 11:18] LABS: MALB Creatinine Ratio 41.5 mg/g (0-30); Microalbumin Urine Random 97.1 mg/L (0-16.7)
== END 2021-12-13 09:09 | disposition home or self-care (01) ==
PROVIDERS: PCP Family Medicine; Referring Provider Physician Assistant; Visit Provider Physician Assistant
DX: D64.9 Anemia, unspecified (principal); R35.0 Frequency of micturition; I10 Essential (primary) hypertension; E11.65 Type 2 diabetes mellitus with hyperglycemia; R35.1 Nocturia
CPT/HCPCS: 36415; 80053; 80061; 81001; 82043; 83036; 84153; 84443; 85025

== ENCOUNTER 2022-08-12 10:54 | Outpatient (CLI) | payer MEDICARE, SELFPAY ==
[2022-08-12 19:18] LABS: Alanine Aminotransferase 18 U/L (6-50); Alkaline Phosphatase 78 U/L (38-126); Anion Gap 9 mmol/L (8-16); Aspartate Amino Transferase 25 U/L (17-59); Bilirubin,Total 0.4 mg/dL (0.2-1.3); Blood Urea Nitrogen 12 mg/dL (9-20); Calcium 8.7 mg/dL (8.4-10.2); Carbon Dioxide 29 mmol/L (22-30); Chloride 101 mmol/L (98-107); Cholesterol 192 mg/dL (0-200); Estimated Glomerular Filt Rate > 60; Glucose 237 mg/dL (65-110); HDL Direct 43 mg/dL; Potassium 4.3 mmol/L (3.4-5.0); Sodium 139 mmol/L (137-145); Triglycerides 102 mg/dL (<150)
[2022-08-12 19:19] LABS: Hemoglobin A1C 11.6 % (<5.7)
[2022-08-12 19:33] LABS: Basophils Absolute Auto 0.1 K/mm3 (0.0-0.1); Basophils Percent Auto 0.8 % (0.2-1.2); Eosinophils Absolute Auto 0.2 K/mm3 (0-0.3); Eosinophils Percent Auto 2.4 % (0-4.4); Hematocrit 41.4 % (42.0-52.0); Hemoglobin 13.6 g/dL (14.0-18.0); Immature Granulocyte Absolute 0.02 K/mm3 (0.00-0.031); Immature Granulocyte Percent A 0.3 % (0-0.5); Lymphocytes Absolute Auto 2.23 K/mm3 (0.9-3.2); Lymphocytes Percent Auto 29.3 % (18.3-44.2); Mean Corpuscular HGB Conc 32.9 g/dl (32-36); Mean Corpuscular Volume 94.3 fl (80-100); Mean Platelet Volume 11.3 fl (7.4-10.4); Monocytes Absolute Auto 0.6 K/mm3 (0.1-0.6); Monocytes Percent Auto 7.3 % (2.6-8.5); Neutrophils Absolute Auto 4.6 K/mm3 (1.3-6.7); Neutrophils Percent Auto 59.9 % (45.5-73.1); Platelet Count Result 180 k/mm3 (150-375); Red Blood Count 4.39 M/mm3 (4.6-6.20); Red Cell Distribution Width 12.6 % (11.5-14.5); White Blood Count 7.6 K/mm3 (4.5-10.0)
[2022-08-12 19:37] LABS: LDL Cholesterol Direct 116 mg/dL
[2022-08-12 19:54] LABS: Creatinine Urine 191.2 mg/dL
[2022-08-12 19:59] LABS: MALB Creatinine Ratio 73.6 mg/g (0-30); Microalbumin Urine Random 140.7 mg/L (0-16.7)
[2022-08-12 20:12] LABS: Folic Acid 6.4 ng/mL (2.76->20)
== END 2022-08-12 10:55 | disposition home or self-care (01) ==
LOC: ANHGOSHLAB 10:56
PROVIDERS: PCP Internal Medicine; Visit Provider Internal Medicine
DX: D64.9 Anemia, unspecified (principal); E11.65 Type 2 diabetes mellitus with hyperglycemia; E78.5 Hyperlipidemia, unspecified; I10 Essential (primary) hypertension
CPT/HCPCS: 36415; 80053; 80061; 82043; 82607; 82728; 82746; 83036; 84443; 85025

== ENCOUNTER 2022-10-21 10:32 | Outpatient (RCR) | payer MEDICARE, SELFPAY | END 2023-01-05 13:27 | disposition home or self-care (01) | LOC: ANHDMC 10:32 | PROVIDERS: PCP Internal Medicine; Visit Provider Internal Medicine | DX: E11.65 Type 2 diabetes mellitus with hyperglycemia (principal); Z71.89 Other specified counseling | CPT/HCPCS: G0108 ==

== ENCOUNTER 2023-03-26 12:29 | Outpatient (CLI) | payer MEDICARE, SELFPAY ==
[2023-03-26 19:09] LABS: Hemoglobin A1C 10.7 % (<5.7)
[2023-03-26 19:11] LABS: Basophils Percent Auto 0.5 % (0.2-1.2); Eosinophils Absolute Auto 0.4 K/mm3 (0-0.3); Hematocrit 42.1 % (42.0-52.0); Hemoglobin 13.3 g/dL (14.0-18.0); Immature Granulocyte Absolute 0.01 K/mm3 (0.00-0.031); Immature Granulocyte Percent A 0.1 % (0-0.5); Lymphocytes Absolute Auto 2.32 K/mm3 (0.9-3.2); Lymphocytes Percent Auto 26.2 % (18.3-44.2); Mean Corpuscular HGB Conc 31.6 g/dl (32-36); Mean Corpuscular Hemoglobin 30.2 pg (26-34); Mean Corpuscular Volume 95.5 fl (80-100); Mean Platelet Volume 11.1 fl (7.4-10.4); Monocytes Absolute Auto 0.6 K/mm3 (0.1-0.6); Monocytes Percent Auto 6.6 % (2.6-8.5); Neutrophils Absolute Auto 5.6 K/mm3 (1.3-6.7); Neutrophils Percent Auto 62.6 % (45.5-73.1); Platelet Count Result 188 k/mm3 (150-375); Red Blood Count 4.41 M/mm3 (4.6-6.20); White Blood Count 8.9 K/mm3 (4.5-10.0)
[2023-03-26 20:17] LABS: Alanine Aminotransferase 16 U/L (6-50); Alkaline Phosphatase 94 U/L (38-126); Anion Gap 10 mmol/L (8-16); Aspartate Amino Transferase 26 U/L (17-59); Bilirubin,Total 0.4 mg/dL (0.2-1.3); Blood Urea Nitrogen 12 mg/dL (9-20); Calcium 9.4 mg/dL (8.4-10.2); Carbon Dioxide 23 mmol/L (22-30); Chloride 105 mmol/L (98-107); Cholesterol 201 mg/dL (0-200); Estimated Glomerular Filt Rate > 60; Glucose 265 mg/dL (65-110); HDL Direct 39 mg/dL; Potassium 4.3 mmol/L (3.4-5.0); Sodium 138 mmol/L (137-145); Triglycerides 113 mg/dL (<150)
[2023-03-26 20:28] LABS: LDL Cholesterol Direct 119 mg/dL
[2023-03-31 20:16] LABS: Apolipoprotein B 109 mg/dL (<90)
== END 2023-03-26 12:30 | disposition home or self-care (01) ==
LOC: ANHGOSHLAB 12:30
PROVIDERS: PCP Internal Medicine; Visit Provider Nurse Practitioner
DX: E11.65 Type 2 diabetes mellitus with hyperglycemia (principal); E78.5 Hyperlipidemia, unspecified
CPT/HCPCS: 36415; 80053; 80061; 82172; 83036; 85025

== ENCOUNTER 2023-10-08 10:03 | Outpatient (CLI) | payer OTHER, SELFPAY ==
[2023-10-08 20:11] LABS: Basophils Absolute Auto 0.1 K/mm3 (0.0-0.1); Basophils Percent Auto 0.6 % (0.2-1.2); Eosinophils Absolute Auto 0.1 K/mm3 (0-0.3); Eosinophils Percent Auto 1.7 % (0-4.4); Hemoglobin 12.8 g/dL (14.0-18.0); Immature Granulocyte Absolute 0.02 K/mm3 (0.00-0.031); Immature Granulocyte Percent A 0.2 % (0-0.5); Lymphocytes Absolute Auto 2.91 K/mm3 (0.9-3.2); Lymphocytes Percent Auto 34.9 % (18.3-44.2); Mean Corpuscular HGB Conc 32.8 g/dl (32-36); Mean Corpuscular Hemoglobin 31.2 pg (26-34); Mean Corpuscular Volume 95.1 fl (80-100); Mean Platelet Volume 11.5 fl (7.4-10.4); Monocytes Absolute Auto 0.7 K/mm3 (0.1-0.6); Monocytes Percent Auto 8.4 % (2.6-8.5); Neutrophils Absolute Auto 4.5 K/mm3 (1.3-6.7); Neutrophils Percent Auto 54.2 % (45.5-73.1); Platelet Count Result 205 k/mm3 (150-375); Red Cell Distribution Width 13.1 % (11.5-14.5); White Blood Count 8.3 K/mm3 (4.5-10.0)
[2023-10-08 20:30] LABS: Creatinine Urine 235.4 mg/dL
[2023-10-08 20:45] LABS: Microalbumin Urine Random 96.6 mg/L (0-16.7)
[2023-10-08 22:06] LABS: Hemoglobin A1C 12.2 % (<5.7)
[2023-10-09 07:45] LABS: Alanine Aminotransferase 25 U/L (6-50); Albumin Level 4.1 g/dL (3.5-5.1); Alkaline Phosphatase 76 U/L (38-126); Anion Gap 8 mmol/L (4-12); Aspartate Amino Transferase 32 U/L (17-59); Bilirubin,Total 0.4 mg/dL (0.2-1.3); Blood Urea Nitrogen 12 mg/dL (9-20); Calcium 9.3 mg/dL (8.4-10.2); Carbon Dioxide 30 mmol/L (22-30); Chloride 105 mmol/L (98-107); Cholesterol 173 mg/dL (0-200); Estimated Glomerular Filt Rate > 60; Glucose 167 mg/dL (65-110); HDL Direct 46 mg/dL; Potassium 4.7 mmol/L (3.4-5.0); Sodium 143 mmol/L (137-145); Triglycerides 63 mg/dL (<150)
[2023-10-09 07:56] LABS: LDL Cholesterol Direct 103 mg/dL
[2023-10-14 22:48] LABS: Apolipoprotein B 95 mg/dL
== END 2023-10-08 10:04 | disposition home or self-care (01) ==
PROVIDERS: PCP Internal Medicine; Visit Provider Internal Medicine
DX: E11.65 Type 2 diabetes mellitus with hyperglycemia (principal); E11.29 Type 2 diabetes mellitus with other diabetic kidney complication; R80.9 Proteinuria, unspecified; E78.5 Hyperlipidemia, unspecified
CPT/HCPCS: 36415; 80053; 80061; 82043; 82172; 83036; 85025

== ENCOUNTER 2024-08-15 13:35 | Outpatient (CLI) | payer MEDICARE, SELFPAY ==
--- OUTSIDE RECORDS SUMMARY | 2024-08-15 13:38 | XMS_ITS | Clinical Summary ---
Author Organization [facility] Address [address] [place] [address] Care Team Providers Care Reservoir Caretaker Name Role Phone Grzegorz Perales MD Primary Care Provider [phone] Source Comments [facility],non-owned Affiliates and Associated Physician Practices is amultiple site organization consisting of ambulatory clinics and hospital sitesin [place], [place], [place] and [place]. This disclosure is being madepursuant to the Care Everywhere program and may not contain all information available regarding this patient. Last updated 17.[facility] Allergies No known active allergies Medications * Be aware that medications may not be up to date on this document. Alwaysverify current medications with the patient. naproxen (NAPROSYN) 500 MG tablet Take 1 Tab by mouth 2 times daily as needed for Pain 20 Tab 08/16/2016 Active cyclobenzaprine (FLEXERIL) 10 MG tablet Take 1 Tab by mouth nightly as needed for Muscle Spasms 10 Tab 08/16/2016 Active Social History Tobacco Use Types Packs/Day Years Used Date Smoking Tobacco: Never Assessed Sex and Gender Information Value Date Recorded Sex Assigned at Not on file Legal Sex Male 12:57 AM CDT Gender Identity Not on file Sexual Orientation Not on file Last Filed Vital Signs Vital Sign Reading Time Taken Comments Blood Pressure 152/82 08/16/2016 12:59 AM CDT Pulse 87 08/16/2016 12:59 AM CDT Temperature 37 C (98.6 F) 08/16/2016 12:59 AM CDT Respiratory Rate 18 08/16/2016 12:59 AM CDT Oxygen Saturation 100% 08/16/2016 12:59 AM CDT Inhaled Oxygen Concentration - - Weight 72.6 kg (160 lb) 08/16/2016 12:59 AM CDT Height 170.2 cm (5' 7 ) 08/16/2016 12:59 AM CDT Body Mass Index 25.06 08/16/2016 12:59 AM CDT Plan of Treatment Health Maintenance Due Date Last Done Comments COLOGUARD (AGES 45-75) - COL ON CA SCREENING 1956 COLON MONITORING 1956 COLONOSCOPY - COLON CA SCREENING 1956 CT COLONOGRAPHY - COLON CA SCREENING 1956 Colorectal Cancer Screening 1956 FIT - COLON CA SCREENING 1956 FLEX SIG - COLON CA SCREENING 1956 LIPID TESTING 1956 HEPATITIS C SCREENING 05/07/1974 DTAP/TDAP/TD VACCINES (1 - Tdap) 1975 PNEUMOCOCCAL VACCINE 50+ (1 of 1 - PCV) 2006 ZOSTER VACCINE (1 of 2) 2006 COVID-19 VACCINE (1 - 2023-2 5 season) 2023 DEPRESSION SCREENING 03/30/2024 INFLUENZA VACCINE (Season Ended) 2024 Respiratory Syncytial Virus (RSV) Vaccine Pt: or over 60 yrs (1 - 1-dose 75+ series) 2031 HEPATITIS B VACCINE Aged Out No longe r eligible based on patient's age to complete this topic HIB VACCINE Aged Out No longer eligi ble based on patient's age to complete this topic HPV VACCINE Aged Out No longer eligi ble based on patient's age to complete this topic MENINGOCOCCAL (Group B) VACC INE SHARED DECISION-MAKING Aged Out No longer eligibl e based on patient's age to complete this topic MENINGOCOCCAL GROUPS A/C/Y/W VACCINE Aged Out No longer eligible b ased on patient's age to complete this topic Insurance PA[employer]OR GENERIC Comp [employer] Care Teams Reservoir Caretaker Relationship Specialty Start Date End Date Grzegorz Perales MD [address] [place] [address] PCP - General Family Medicine 08/16/16
--- OUTSIDE RECORDS SUMMARY | 2024-08-15 13:38 | XMS_ITS | Clinical Summary ---
Author Organization [facility] Address [address] [place] [address] Care Team Providers Care Sales Representative [employer] Name Role Phone Unavailable Primary Care Provider Unavailabl e Social History Tobacco Use Types Packs/Day Years Used Date Smoking Tobacco: Never Assessed Sex and Gender Information Value Date Recorded Sex Assigned at Not on file Legal Sex Male 7:51 PM CDT Gender Identity Not on file Sexual Orientation Not on file Last Filed Vital Signs Vital Sign Reading Time Taken Comments Blood Pressure 136/78 12/26/2014 9:17 AM CDT Pulse 66 12/26/2014 9:17 AM CDT Temperature - - Respiratory Rate - - Oxygen Saturation - - Inhaled Oxygen Concentration - - Weight 73.9 kg (163 lb) 12/26/2014 9:17 AM CDT Height 170.2 cm (5' 7 ) 12/26/2014 9:17 AM CDT Body Mass Index 25.53 12/26/2014 9:17 AM CDT Plan of Treatment Health Maintenance Due Date Last Done Comments Colorectal Cancer Screening Colonoscopy (10 Years) 1955 DTaP, Tdap and Td Vaccines ( 1 - Tdap) 1975 Pneumococcal Vaccine: 50+ Ye ars (1 of 1 - PCV) 2006 Zoster Vaccines (1 of 2) 2006 COVID-19 Vaccine ( - 2023-2 5 season) 2023 RSV Immunization or 60+ Years (1 - 1-dose 75+ series) 2031 Hepatitis C Completed 10/12/2014 Meningococcal B Vaccine Aged Out No l onger eligible based on patient's age to complete this topic Meningococcal Vaccine Aged Out No harjit misael eligible based on patient's age to complete this topic RSV Immunizations Under 20 Months Aged Out No longer eligible based on patient's age to complete this topic Procedures Procedure Name Priority Date/Time Associated Diagnosis Comments HEPATITIS C ANTIBODY Routine 10/12/2014 10:57 AM CDT COLONOSCOPY Routine FINE ARTS PACKER from Last 3 Months or Most Recently Relevant to Health Maintenance Results * HEPATITIS C ANTIBODY (10/12/2014 10:57 AM CDT) HEPATITIS C AB NON-REACT HORTENSIA NON-REACT HORTENSIA [facility] TO EPIC CONVERSION SIGNAL TO CUTOFF 0.03 <1.00 [facility] TO EPIC CONVERSION Comment: Result Comment: Test Performed at: [facility] [id number] [place] [address] MICHELLE ARRINGTON DO,MPH 10/12/2014 10:5 7 AM CDT 10/12/2014 10:57 AM CDT Narrative [facility] TO EPIC CONVERSION - 10/13/2014 10:54 AM CDT Result Communication: No patient communication needed at this time Maxx Lozoya MD LABORATORY Final Result Performing Organization Address [facility]/ZIP Co de Phone Number [facility] TO EPIC CONVERSION * Colonoscopy ( FINE ARTS PACKER) Narrative [facility] TO EPIC CONVERSION - FINE ARTS PACKER Documented hx of procedure Procedure Note Lalitha Parisi MD - 01/31/2018 Documented hx of procedure Lalitha Max Md, MD GI PROCEDURE ORDERABLES Final Result Performing Organization Address [facility]/ZIP Co de Phone Number [facility] TO EPIC CONVERSION from Last 3 Months or Most Recently Relevant to Health Maintenance
[2024-08-15 20:15] LABS: Basophils Absolute Auto 0.1 K/mm3 (0.0-0.1); Basophils Percent Auto 0.6 % (0.2-1.2); Eosinophils Absolute Auto 0.1 K/mm3 (0-0.3); Eosinophils Percent Auto 1.1 % (0-4.4); Hematocrit 39.8 % (42.0-52.0); Hemoglobin 12.9 g/dL (14.0-18.0); Immature Granulocyte Absolute 0.02 K/mm3 (0.00-0.031); Immature Granulocyte Percent A 0.2 % (0-0.5); Lymphocytes Absolute Auto 2.44 K/mm3 (0.9-3.2); Lymphocytes Percent Auto 30.1 % (18.3-44.2); Mean Corpuscular HGB Conc 32.4 g/dl (32-36); Mean Corpuscular Hemoglobin 30.5 pg (26-34); Mean Corpuscular Volume 94.1 fl (80-100); Mean Platelet Volume 11.4 fl (7.4-10.4); Monocytes Absolute Auto 0.8 K/mm3 (0.1-0.6); Monocytes Percent Auto 9.2 % (2.6-8.5); Neutrophils Absolute Auto 4.8 K/mm3 (1.3-6.7); Neutrophils Percent Auto 58.8 % (45.5-73.1); Platelet Count Result 183 k/mm3 (150-375); Red Blood Count 4.23 M/mm3 (4.6-6.20); Red Cell Distribution Width 12.7 % (11.5-14.5); White Blood Count 8.1 K/mm3 (4.5-10.0)
[2024-08-15 20:40] LABS: Creatinine Urine 134.6 mg/dL
[2024-08-15 20:45] LABS: MALB Creatinine Ratio 91.7 mg/g (0-30); Microalbumin Urine Random 123.4 mg/L (0-16.7)
[2024-08-15 23:07] LABS: Hemoglobin A1C 11.8 % (<5.7)
[2024-08-15 23:19] LABS: Alanine Aminotransferase 19 U/L (6-50); Alkaline Phosphatase 79 U/L (38-126); Anion Gap 8 mmol/L (4-12); Aspartate Amino Transferase 33 U/L (17-59); Bilirubin,Total 0.4 mg/dL (0.2-1.3); Blood Urea Nitrogen 14 mg/dL (9-20); Carbon Dioxide 25 mmol/L (22-30); Chloride 106 mmol/L (98-107); Cholesterol 213 mg/dL (0-200); Estimated Glomerular Filt Rate > 60; Glucose 232 mg/dL (65-110); HDL Direct 41 mg/dL; Potassium 4.5 mmol/L (3.4-5.0); Sodium 139 mmol/L (137-145); Triglycerides 69 mg/dL (<150)
[2024-08-15 23:27] LABS: LDL Cholesterol Direct 132 mg/dL
[2024-08-15 23:51] LABS: Prostate Specific Antigen 5.2 ng/mL (< OR = 4.0)
== END 2024-08-15 13:36 | disposition home or self-care (01) ==
LOC: ANHGOSHLAB 13:37
PROVIDERS: PCP Internal Medicine; Visit Provider Nurse Practitioner
DX: E11.65 Type 2 diabetes mellitus with hyperglycemia (principal); Z79.4 Long term (current) use of insulin; E11.29 Type 2 diabetes mellitus with other diabetic kidney complication; R80.9 Proteinuria, unspecified; Z12.5 Encounter for screening for malignant neoplasm of prostate
CPT/HCPCS: 36415; 80053; 80061; 82043; 83036; 84153; 85025; G0103

== ENCOUNTER 2024-09-06 12:38 | Outpatient (CLI) | payer MEDICARE, SELFPAY ==
--- OUTSIDE RECORDS SUMMARY | 2024-09-06 13:27 | XMS_ITS | Data Portability ---
Author Organization [facility] Address [address] [place] [address] Care Team Providers Care Employment And Claims Aide Name Role Phone PHILIPP GOODE Primary Care Provider Assessment No assessment recorded. Plan of Treatment Reminders Order Date Submit Date Provider Last Modified By Organization Details Last Modified Time Details Appointments None recorded. Lab glucose, fingersti ck, blood 2015 016 [email or web address] In-Office Order, Internal Use Only DO Not Attach Compendium DO Not Attach Compendium, Do Not Delete/merge, [id number] 11:28:29 CBC w/ auto diff 2015 016 [facility], [address] [facility], [address], [place], [address], 6 07:16:38 PSA, serum or plasma 2015 016 [facility], [address] [facility], [address], [place], [address], 6 09:22:59 TSH, serum or plasma 2015 016 [facility], [address] [facility] [address], [address], [place], [address], 6 09:22:58 CMP, serum or plasma 2015 016 [facility], [address] [facility] [address], [address], [place], [address], 6 09:22:57 HbA1c (hemoglob in A1c), blood 2015 016 [facility], [facility], [address], [place], [address], 6 08:26:14 hepatitis C virus Ab, serum 2015 016 [facility], [address] [place] [address], [address], [place], [address], 6 09:22:54 lipids, total, serum 2015 016 [facility], [address] [place] [address], [address], [place], [address], 6 11:28:29 Referral None recorded. Procedures None recorded. Surgeries None recorded. Imaging None recorded. Medication Orders glimepiri de 4 mg tablet 2015 016 [facility] [employer], [facility], [address] [place] [address], [place], [place], [id number], 6 11:28:30 metformin 1,000 mg tablet 2015 016 [facility], [facility], [address] [facility] [address], [place], [place], [id number], 6 11:28:30 Patient TargetsNo targets recorded. Patient Instructions Encounter Date Encounter Id Patient Instructions Last Modified By Organization Details Last Modified Time 09/11/2015 [id number] elevated blood pressure: care [facility] Not available 09/11/2015 11:28:30 Counting Carbohydrates for Diabetes: Care Instructions [facility] Not available 09/11/2015 11:28:30 Take all medications as ordered. Avoiding stopping medications abruptly!! Take blood sugar readings as instructed!! 1. Limit salt, sweets, and fats in diet; 2. Increase intake of fruits and veggies in diet. 3.Begin walking at a moderate pace 3-5 times per week for 30 min.; 4 Limit caffeinated beverages in diet and drink at least 6-8 8oz glasses of water daily. [email or web address] Not available 09/11/2015 10:43:56 Reason for Referral None Reported. Results Created Date Observation Date Name Description Value Unit Range Abnormal Flag Note LastModifiedBy Organization Detail LastModifiedTime 09/11/19 16 09/11/2015 gluco , [facility], blood Blood Glucose: mg/dl 282 Not Available In-Off ice Order Internal Use Only DO Not Attach Compendium DO Not Attach Compendium, Do Not Delete/merge, [id number] 09/11/2015 10:27:24 09/11/19 16 09/12/2015 CBC w/ auto diff WBC 7.8 x10e3 /uL 3.4-10 .8 Not Available [facility] (Lab) [address] [place], [address], 09/12/2015 07:16:38 09/11/19 16 09/12/2015 CBC w/ auto diff RBC 4.31 x10e6 /uL 4.14-5 .80 Not Available [facility] (Lab) [address] [place], [address], 09/12/2015 07:16:38 09/11/19 16 09/12/2015 CBC w/ auto diff hemoglobin 13.6 g/dL 12.6-1 7.7 Not Available [facility] (Lab) [address] [facility], [place], [address], 09/12/2015 07:16:38 09/11/19 16 09/12/2015 CBC w/ auto diff hematocrit 40.6 % 37.5-5 1.0 Not Available [facility] (Lab) [address] [place], [address], 09/12/2015 07:16:38 09/11/19 16 09/12/2015 CBC w/ auto diff MCV 94 fL 79-97 Not Available [facility] (Lab) [address] [place], [address], 09/12/2015 07:16:38 09/11/19 16 09/12/2015 CBC w/ auto diff MCH 31.6 pg 26.6-3 3.0 Not Available [facility] (Lab) [address] [place], [address], 09/12/2015 07:16:38 09/11/19 16 09/12/2015 CBC w/ auto diff MCHC 33.5 g/dL 31.5-3 5.7 Not Available [facility] (Lab) [address] [place], [address], 09/12/2015 07:16:38 09/11/19 16 09/12/2015 CBC w/ auto diff RDW 13.1 % 12.3-1 5.4 Not Available [facility] (Lab) [address] [place], [address], 09/12/2015 07:16:38 09/11/19 16 09/12/2015 CBC w/ auto diff platelets 204 x10e3 /uL 150-37 9 Not Available [facility] (Lab) [address] [facility], [place], [address], 09/12/2015 07:16:38 09/11/19 16 09/12/2015 CBC w/ auto diff neutrophils 56 % Not Available [facility] (Lab) [address] [facility], [place], [address], 09/12/2015 07:16:38 09/11/19 16 09/12/2015 CBC w/ auto diff lymphs 36 % Not Available [facility] (Lab) [address] [place], [address], 09/12/2015 07:16:38 09/11/19 16 09/12/2015 CBC w/ auto diff monocytes 6 % Not Available [facility] (Lab) [address] [place], [address], 09/12/2015 07:16:38 09/11/19 16 09/12/2015 CBC w/ auto diff eos 2 % Not Available [facility] (Lab) [address] [place], [address], 09/12/2015 07:16:38 09/11/19 16 09/12/2015 CBC w/ auto diff basos 0 % Not Available [facility] (Lab) [address] [place], [address], 09/12/2015 07:16:38 09/11/19 16 09/12/2015 CBC w/ auto diff immature cells Not Available [facility] (Lab) [address] [facility], [place], [address], 09/12/2015 07:16:38 09/11/19 16 09/12/2015 CBC w/ auto diff neutrophils (absolute) 4.5 x10e3 /uL 1.4-7. 0 Not Available [facility] (Lab) [address] [facility], [place], [address], 09/12/2015 07:16:38 09/11/19 16 09/12/2015 CBC w/ auto diff lymphs (absolute) 2.8 x10e3 /uL 0.7-3. 1 Not Available [facility] (Lab) [address] [facility], [place], [address], 09/12/2015 07:16:38 09/11/19 16 09/12/2015 CBC w/ auto diff monocytes(ab solute) 0.4 x10e3 /uL 0.1-0. 9 Not Available [facility] (Lab) [address] [place], [address], 09/12/2015 07:16:38 09/11/19 16 09/12/2015 CBC w/ auto diff eos (absolute) 0.1 x10e3 /uL 0.0-0. 4 Not Available [facility] (Lab) [address] [place], [address], 09/12/2015 07:16:38 09/11/19 16 09/12/2015 CBC w/ auto diff baso (absolute) 0.0 x10e3 /uL 0.0-0. 2 Not Available [facility] (Lab) [address] [place], [address], 09/12/2015 07:16:38 09/11/19 16 09/12/2015 CBC w/ auto diff immature granulocytes 0 % Not Available [facility] (Lab) [address] [place], [address], 09/12/2015 07:16:38 09/11/19 16 09/12/2015 CBC w/ auto diff immature grans (abs) 0.0 x10e3 /uL 0.0-0. 1 Not Available [facility] (Lab) [address] [place], [address], 09/12/2015 07:16:38 09/11/19 16 09/12/2015 CBC w/ auto diff NRBC Not Available [facility] (Lab) [address] [place], [address], 09/12/2015 07:16:38 09/11/19 16 09/12/2015 CBC w/ auto diff hematology comments: Not Available [facility] (Lab) [address] [place], [address], 09/12/2015 07:16:38 09/11/19 16 09/12/2015 lipid panel w/ direc t LDL, serum cholesterol, total 171 mg/dL 100-19 9 Not Available [facility] (Lab) [address] [place], [address], 09/12/2015 07:16:39 09/11/19 16 09/12/2015 lipid panel w/ direc t LDL, serum triglyceride s 136 mg/dL 0-149 Not Available [facility] (Lab) [address] [place], [address], 09/12/2015 07:16:39 09/11/1909/12/2015 lipid panel w/ direc t LDL, serum HDL cholesterol 40 mg/dL >39 Accor ding to ATP-I II Guide lines , HDL-C >59 mg/dL is consi dered a negat laura risk facto r for CHD. Not Available [facility] (Lab) [address] [place], [address], 09/12/2015 07:16:39 09/11/19 16 09/12/2015 lipid panel w/ direc t LDL, serum VLDL cholesterol rodger 27 mg/dL 5-40 Not Available [facility] (Lab) [address], [place], [address], 09/12/2015 07:16:39 09/11/19 16 09/12/2015 lipid panel w/ direc t LDL, serum LDL cholesterol calc 104 mg/dL 0-99 high Not Available [facility] (Lab) [address], [place], [address], 09/12/2015 07:16:39 09/11/19 16 09/12/2015 lipid panel w/ direc t LDL, serum lipid calculation Not Available [facility] (Lab) [address] [facility], [place], [address], 09/12/2015 07:16:39 09/11/1909/12/2015 HbA1c (hemo globi n A1c), blood hemoglobin A1C 11.5 % 4.8-5. 6 high . Pre-d iabet es: 5.7 - 6.4 Diabe osmany: >6.4 Glyce juve contr ol for adult s with diabe osmany: <7.0 Not Available [facility] (Lab) [address] [facility], [place], [address], 09/12/2015 08:26:14 09/11/19 16 09/12/2015 hepat itis C Ab, serum HCV antibody 0.1 s/co_ ratio 0.0-0. 9 Not Available [facility] (Lab) [address] [place], [address], 09/12/2015 09:22:54 09/11/19 16 09/12/2015 hepat itis C Ab, serum HCV comment 1 SPRCS Non react laura HCV antib stacie scree n is consi stent with no HCV infec tion, unles s recen t infec tion is suspe cted or other evide nce exist s to indic ate HCV infec tion. Not Available [facility] (Lab) [address] [place], [address], 09/12/2015 09:22:54 09/11/19 16 09/12/2015 CMP, serum or plasm a glucose, serum 280 mg/dL 65-99 high Not Available [facility] (Lab) [address], [place], [address], 09/12/2015 09:22:57 09/11/19 16 09/12/2015 CMP, serum or plasm a BUN 12 mg/dL 6-24 Not Available [facility] (Lab) [address], [place], [address], 09/12/2015 09:22:57 09/11/19 16 09/12/2015 CMP, serum or plasm a creatinine, serum 1.07 mg/dL 0.76-1 .27 Not Available [facility] (Lab) [address], [place], [address], 09/12/2015 09:22:57 09/11/19 16 09/12/2015 CMP, serum or plasm a eGFR if nonafricn AM 76 mL/mi n/1.7 3 >59 Not Available [facility] (Lab) [address], [place], [address], 09/12/2015 09:22:57 09/11/19 16 09/12/2015 CMP, serum or plasm a eGFR if 87 mL/mi n/1.7 3 >59 Not Available [facility] (Lab) [address], [place], [address], 09/12/2015 09:22:57 09/11/19 16 09/12/2015 CMP, serum or plasm a BUN/creatini ne ratio 11 9-20 Not Available [facility] (Lab) [address], [place], [address], 09/12/2015 09:22:57 09/11/19 16 09/12/2015 CMP, serum or plasm a sodium, serum 142 mmol/ L 134-14 4 Not Available [facility] (Lab) [address] [place], [address], 09/12/2015 09:22:57 09/11/19 16 09/12/2015 CMP, serum or plasm a potassium, serum 4.5 mmol/ L 3.5-5. 2 Not Available [facility] (Lab) [address] [place], [address], 09/12/2015 09:22:57 09/11/19 16 09/12/2015 CMP, serum or plasm a chloride, serum 104 mmol/ L 97-108 Not Available [facility] (Lab) [address], [place], [address], 09/12/2015 09:22:57 09/11/19 16 09/12/2015 CMP, serum or plasm a carbon dioxide, total 21 mmol/ L 18-29 Not Available [facility] (Lab) [address], [place], [address], 09/12/2015 09:22:57 09/11/1909/12/2015 CMP, serum or plasm a calcium, serum 8.8 mg/dL 8.7-10 .2 Not Available [facility] (Lab) [address], [place], [address], 09/12/2015 09:22:57 09/11/1909/12/2015 CMP, serum or plasm a protein total serum 7.1 g/dL 6.0-8. 5 Not Available [facility] (Lab) [address], [place], [address], 09/12/2015 09:22:57 09/11/1909/12/2015 CMP, serum or plasm a albumin, serum 3.9 g/dL 3.5-5. 5 Not Available [facility] (Lab) [address] [place], [address], 09/12/2015 09:22:57 09/11/1909/12/2015 CMP, serum or plasm a globulin total 3.2 g/dL 1.5-4. 5 Not Available [facility] (Lab) [address] [place], [address], 09/12/2015 09:22:57 09/11/19 16 09/12/2015 CMP, serum or plasm a A/G ratio 1.2 1.1-2. 5 Not Available [facility] (Lab) [address] [place], [address], 09/12/2015 09:22:57 09/11/19 16 09/12/2015 CMP, serum or plasm a bilirubin total 0.2 mg/dL 0.0-1. 2 Not Available [facility] (Lab) [address] [facility], [place], [address], 09/12/2015 09:22:57 09/11/19 16 09/12/2015 CMP, serum or plasm a alkaline phosphatase ser 70 IU/L 39-117 Not Available [facility] (Lab) [address] [place], [address], 09/12/2015 09:22:57 09/11/1909/12/2015 CMP, serum or plasm a AST (SGOT) 21 IU/L 0-40 Not Available [facility] (Lab) [address] [place], [address], 09/12/2015 09:22:57 09/11/1909/12/2015 CMP, serum or plasm a ALT (SGPT) 26 IU/L 0-44 Not Available [facility] (Lab) [address] [place], [address], 09/12/2015 09:22:57 09/11/1909/12/2015 TSH, serum or plasm a TSH 3.230 uIU/m L 0.450- 4.500 Not Available [facility] (Lab) [address] [place], [address], 09/12/2015 09:22:58 09/11/192016 PSA, serum or plasm a prostate specific Ag, serum 2.1 NG/mL 0.0-4. 0 Ely ECLIA metho dolog y. . Accor ding to the Ameri can Urolo gical Assoc iatio n, Serum PSA shoul d decre ase and remai n at undet ectab le level s after radic al prost atect maria c. The AUA defin es bioch emica l recur rence as an initi al PSA value 0.2 ng/mL or great er follo wed by a subse quent confi rmato ry PSA value 0.2 ng/mL or great er. Value s obtai kate with diffe rent assay metho ds or kits canno t be used inter rebolledo eably . Resul ts canno t be inter prete d as absol pilot station evide nce of the prese nce or absen ce of [facility]. Not Available [facility] ([facility]) [address] [place], [address], 09/12/2015 09:22:59 Result Notes None recorded. Problems Name Problem SNOMED Code Status Onset Date Resolution Date Notes Provider Name and Address Organization Details Recorded Time Diabetes mellitus 97970498 Active ANA Busch Attn: Accounting ,[address] [place], [address] , [facility] 6 11:28:28 Increased blood pressure 71139250 Active ANA Busch Attn: Accounting ,[address] [place], [address] , [facility] 6 11:28:28 Problem Notes None recorded. Procedures Surgical History Date Name Laterality Status Provider Name and Address Organization Details Recorded Time 3 Appendectomy completed Dorothea Bales MA [facility] 09/11/2015 10:27:24 Imaging Results None recorded. Procedure Notes None recorded. Medical Equipment None Reported. Allergies No known drug allergies Medications Name Sig Start Date Stop Date Status Note LastModified by Organization Details LastModified Time metformin 1,000 mg tablet Take 1 tablet twice a day by oral route as directed for 30 days. active Not Available Not Available No t Available glimepiride 4 mg tablet Take 1 tablet twice a day by oral route as directed for 30 days. active Not Available Not Available No t Available Vitals Date Recorded Heart rate Respiratory rate Body mass index (BMI) Body height Body temperature Body weight Oxygen saturation Oxygen saturation in Arterial blood by Pulse oximetry Systolic blood pressure Diastolic blood pressure Provider Name and Address Organization Details Last Updated DateTime 6 82 /min 18 /min 25.2 kg/m2 170.18 cm 98.5 [degF] 43903.3 7157 g 98 % 98 % 140 mm[Hg] 80 mm[Hg] Dorothea Bales MA [facility] 6 10:27:24 Social History Question Answer Notes LastModified by Organizat ion Details LastModified Time Tobacco Smoking Status Never Smoker Dorothea Bales MA null, [facility] 09/11/2015 10:27:23 Which Illicit Or Recreational Drugs Have You Used? Denies Use Information not available 09/11/2015 Do You Use Protection During Sex? No Information not available 09/11/2015 Are You Sexually Active? Yes Information not available 09/11/2015 How Much Tobacco Do You Smoke? No [email or web address] Information not available 09/11/2015 Sex: Unknown Functional Status Question Answer Note LastModified by Organization D etails LastModified Time What is your level of alcohol consumption? None Information not available 09/11/2015 Mental Status None recorded. Family History Relationship Description Onset Age of this Age Resolved Age Notes LastModified by Organization Details LastModified Time Mother Diabetes mellitus [email or web address] Not available 09/10 10:32:19 Father Diabetes mellitus [email or web address] Not available 09/10 10:32:19 Brother Diabetes mellitus [email or web address] Not available 09/10 10:32:19 Sister Diabetes mellitus [email or web address] Not available 09/10 10:32:19 Medical History Condition Response Coronary Artery Disease N Other N High Blood Pressure N Atrial Fibrillation N Kidney or Bladder Problems N Thyroid Problems N GI Problems N Depression N COPD N Blood Clots N Skin Problems N Anemia N Heart Attack ([place]) N Anxiety Disorder N Diabetes Y Muscle, Joint, or Bone Problems N Seizures/Epilepsy N Acid Reflux (GERD) N Cancer N Stroke N Asthma N Allergies N High Cholesterol Y Hepatitis N Liver Disease N Headaches N Heart Failure N Osteoporosis N Past Encounters Encounter ID Performer Location Encounter Start Date Encounter Closed Date Diagnosis/Indication Diagnosis SNOMED-CT Code Diagnosis ICD10 Code Diagnosis Note [id number] Demetrio Mathis MD [address] [address] 09/11/2015 10:08:16 09/11/2015 11:32:19 Diabetes mellitus 58880717 E11.9 Fasting OZ=878. No physical abnormalit ies on exam -Routine labs today, including A1C -Continue current meds w/ close FU Increased blood pressure 81512002 I10 BP 140/80 no dx. of HTN Discussed implicatio ns for health and the need for lifestyle changes, namely limiting sodium and increasing physical activity. Adult heal th examination 936942887 Z00.00 PE unremarkab le. Routine labs Continue current meds Consent signed to obtain records from previous PCP Dr. Marissa SERRATO in one month for FU. Health Concerns Section Related Observation LastModified by Organization Detai ls LastModified Time None Recorded Concern Status LastModified by Organization Details LastModified Time None Recorded Advance Directives Directive None Recorded Payers Encounter Date Sequence Insurance Name Policy Number Policy Isaac Covered Member ID Isaac Member ID Guarantor Name 09/11/2015 1 [employer] [id number] Chris Aguilar [id number] Chris Aguilar Notes Date Note Type Note Provider Name and Address Organization Details Recorded Time 09/11/2015 text/html DiabetesReported bypatient.Duration:chr onic Onset/Timing:diagnosed on: (per pt. years ago) Control:usually well controlled; improved since last visit; normal range of home blood sugars (in the low 100s) Compliance:compliant with medications; compliant with follow-up visits; compliant with diet; compliant with home glucose monitoring Self Care:not monitoring home glucose;not seeing eye doctor yearly;not checking feet regularly;not taking aspirin daily Associated Symptoms:no weight gain; no weight loss; no dizziness; no sweats; no headaches; no confusion; no increased thirst; no increased appetite; no increased urination; no blurred vision; no numbness of feet; no calluses on feetNotes:No care in over a year. States that taking medications...had a lot of refills. Could not recall what his most recent set of lab values were. Previously seeing Dr. nAn in [place] and changed due to insurance. ALYSIA BuschC Attn: Accounting,[address] [place], [address], [facility] 09/11/2015 11:29:01
[2024-09-06 17:39] LABS: Prostate Specific Antigen 4.4 ng/mL (< OR = 4.0)
== END 2024-09-06 12:39 | disposition home or self-care (01) ==
LOC: ANHGOSHLAB 12:40
PROVIDERS: PCP Internal Medicine; Visit Provider Nurse Practitioner
DX: R97.20 Elevated prostate specific antigen [PSA] (principal)
CPT/HCPCS: 36415; 84153

== ENCOUNTER 2024-12-29 15:24 | Outpatient (CLI) | payer MEDICARE, SELFPAY ==
--- OUTSIDE RECORDS SUMMARY | 2024-12-29 15:27 | XMS_ITS | Data Portability ---
Author Organization [facility] FELIXPushpa Puente Address [address] [facility] [place] [address] Care Team Providers Care Guidance And Control System Engineer Name Role Phone PHILIPP GOODE Primary Care Provider Assessment No assessment recorded. Plan of Treatment Reminders Order Date Submit Date Provider Last Modified By Organization Details Last Modified Time Details Appointments None recorded. Lab glucose, fingersti ck, blood 2015 016 [facility] In-Office Order, Internal Use Only DO Not Attach Compendium DO Not Attach Compendium, Do Not Delete/merge, [id number] 6 11:28:29 CBC w/ auto diff 2015 016 [facility], [facility], [address], [place], [address], 6 07:16:38 PSA, serum or plasma 2015 016 [facility], [facility], [address], [place], [address], 6 09:22:59 TSH, serum or plasma 2015 016 [facility], [facility], [address], [place], [address], 6 09:22:58 CMP, serum or plasma 2015 016 [facility], [address] [place], [place] [address]drewcheryl Form[address], [address], [place], [address], 6 09:22:57 HbA1c (hemoglob in A1c), blood 2015 016 [facility], [address] [place] [address], [address], [place], [address], 6 08:26:14 hepatitis C virus Ab, serum 2015 016 [facility], [address] [place] [address], [facility] [address], [place], [address], 6 09:22:54 lipids, total, serum 2015 016 [facility], [address] [place] [address], [address], [place], [address], 6 11:28:29 Referral None recorded. Procedures None recorded. Surgeries None recorded. Imaging None recorded. Medication Orders glimepiri de 4 mg tablet 2015 016 [facility] [employer], [facility], [address] [place] [address], [id number], 6 11:28:30 metformin 1,000 mg tablet 2015 016 [facility], [facility], [address] [place] [address] 100, [place], [place], [phone], 6 11:28:30 Patient TargetsNo targets recorded. Patient Instructions Encounter Date Encounter Id Patient Instructions Last Modified By Organization Details Last Modified Time 09/11/2015 [id number] elevated blood pressure: care instructions [facility] Not available 09/11/2015 11:28:30 Counting Carbohydrates for Diabetes: Care Instructions [facility] Not available 09/11/2015 11:28:30 Take all medications [...] Organization Detail LastModifiedTime 09/11/19 16 09/11/2015 gluco se, finge rstic k, blood Blood Glucose: mg/dl 282 Not Available In-Off ice Order Internal Use Only DO Not Attach Compendium DO Not Attach Compendium, Do Not Delete/merge, [id number] 09/11/2015 10:27:24 09/11/19 16 09/12/2015 CBC w/ auto diff WBC 7.8 x10e3 /uL 3.4-10 .8 Not Available [facility] (Lab) [address] [facility], [place], [address], 09/12/2015 07:16:38 09/11/19 16 09/12/2015 CBC w/ auto diff RBC 4.31 x10e6 /uL 4.14-5 .80 Not Available [facility] (Lab) [address] [facility], [place], [address], 09/12/2015 07:16:38 09/11/19 16 09/12/2015 CBC w/ auto diff hemoglobin 13.6 g/dL 12.6-1 7.7 Not Available [facility] (Lab) [address] [place], [address], 09/12/2015 07:16:38 09/11/19 16 09/12/2015 CBC w/ auto diff hematocrit 40.6 % 37.5-5 1.0 Not Available [facility] (Lab) [address] [place], [address], 09/12/2015 07:16:38 09/11/19 16 09/12/2015 CBC w/ auto diff MCV 94 fL 79-97 Not Available [facility] (Lab) [address] [place], [address], 09/12/2015 07:16:38 09/11/19 16 09/12/2015 CBC w/ auto diff MCH 31.6 pg 26.6-3 3.0 Not Available [facility] (Lab) [address] [place], [address], 09/12/2015 07:16:38 09/11/19 16 09/12/2015 CBC w/ auto diff MCHC 33.5 g/dL 31.5-3 5.7 Not Available [facility] (Lab) [address] [place], [address], 09/12/2015 07:16:38 09/11/19 16 09/12/2015 CBC w/ auto diff RDW 13.1 % 12.3-1 5.4 Not Available [facility] (Lab) [address] [place], [address], 09/12/2015 07:16:38 09/11/19 16 09/12/2015 CBC w/ auto diff platelets 204 x10e3 /uL 150-37 9 Not Available [facility] (Lab) [address] [place], [address], 09/12/2015 07:16:38 09/11/19 16 09/12/2015 CBC w/ auto diff neutrophils 56 % Not Available [facility] (Lab) [address] [facility], [place], [address], 09/12/2015 07:16:38 09/11/19 16 09/12/2015 CBC w/ auto diff lymphs 36 % Not Available [facility] (Lab) [address] [place], [address], 09/12/2015 07:16:38 09/11/19 16 09/12/2015 CBC w/ auto diff monocytes 6 % Not Available [facility] (Lab) [address] [place], [address], 09/12/2015 07:16:38 09/11/19 16 09/12/2015 CBC w/ auto diff eos 2 % Not Available [facility] (Lab) [address] [place], [address], 09/12/2015 07:16:38 09/11/19 16 09/12/2015 CBC w/ auto diff basos 0 % Not Available [facility] (Lab) [address] [place], [address], 09/12/2015 07:16:38 09/11/19 16 09/12/2015 CBC w/ auto diff immature cells Not Available [facility] (Lab) [address] [place], [address], 09/12/2015 07:16:38 09/11/19 16 09/12/2015 CBC w/ auto diff neutrophils (absolute) 4.5 x10e3 /uL 1.4-7. 0 Not Available [facility] (Lab) [address] [facility], [place], [address], 09/12/2015 07:16:38 09/11/19 16 09/12/2015 CBC w/ auto diff lymphs (absolute) 2.8 x10e3 /uL 0.7-3. 1 Not Available [facility] (Lab) [address] [place], [address], 09/12/2015 07:16:38 09/11/19 16 09/12/2015 CBC w/ auto diff monocytes(ab solute) 0.4 x10e3 /uL 0.1-0. 9 Not Available [facility] (Lab) [address] [place], [address], 09/12/2015 07:16:38 09/11/19 16 09/12/2015 CBC w/ auto diff eos (absolute) 0.1 x10e3 /uL 0.0-0. 4 Not Available [facility] (Lab) [address] [place], [address], 09/12/2015 07:16:38 09/11/19 16 09/12/2015 CBC w/ auto diff baso (absolute) 0.0 x10e3 /uL 0.0-0. 2 Not Available [facility] (Lab) [address] [place], [address], 09/12/2015 07:16:38 09/11/19 16 09/12/2015 CBC w/ auto diff immature granulocytes 0 % Not Available [facility] (Lab) [address], [place], [address], 09/12/2015 07:16:38 09/11/19 16 09/12/2015 CBC w/ auto diff immature grans (abs) 0.0 x10e3 /uL 0.0-0. 1 Not Available [facility] (Lab) [address] [facility], [place], [address], 09/12/2015 07:16:38 09/11/19 16 09/12/2015 CBC w/ auto diff NRBC Not Available [facility] (Lab) [address] [facility], [place], [address], 09/12/2015 07:16:38 09/11/19 16 09/12/2015 CBC w/ auto diff hematology comments: Not Available [facility] (Lab) [address], [place], [address], 09/12/2015 07:16:38 09/11/19 16 09/12/2015 lipid panel w/ direc t LDL, serum cholesterol, total 171 mg/dL 100-19 9 Not Available [facility] (Lab) [address] [facility], [place], [address], 09/12/2015 07:16:39 09/11/1909/12/2015 lipid panel w/ direc t LDL, serum triglyceride s 136 mg/dL 0-149 Not Available [facility]) [address] [facility], [place], [address], 09/12/2015 07:16:39 09/11/1909/12/2015 lipid panel w/ direc t LDL, serum HDL cholesterol 40 mg/dL >39 Accor ding to ATP-I II Guide lines , HDL-C >59 mg/dL is consi dered a negat laura risk facto r for CHD. Not Available [facility] (Lab) [address] [place], [address], 09/12/2015 07:16:39 09/11/19 16 09/12/2015 lipid panel w/ direc t LDL, serum VLDL cholesterol rodger 27 mg/dL 5-40 Not Available [facility] (Lab) [address] [facility], [place], [address], 09/12/2015 07:16:39 09/11/19 16 09/12/2015 lipid panel w/ direc t LDL, serum LDL cholesterol calc 104 mg/dL 0-99 high Not Available [facility] ([facility]) [address] [facility], [place], [address], 09/12/2015 07:16:39 09/11/19 16 09/12/2015 lipid panel w/ direc t LDL, serum lipid calculation Not Available [facility] (Lab) [address] [facility], [place], [address], 09/12/2015 07:16:39 09/11/1909/12/2015 HbA1c (hemo globi n A1c), blood hemoglobin A1C 11.5 % 4.8-5. 6 high . Pre-d iabet es: 5.7 - 6.4 Diabe osmany: >6.4 Glyce juve contr ol for adult s with diabe osmany: <7.0 Not Available [facility] (Lab) [address] [facility], [place], [address], 09/12/2015 08:26:14 09/11/1909/12/2015 hepat itis C Ab, serum HCV antibody 0.1 s/co_ ratio 0.0-0. 9 Not Available [facility] (Lab) [address] [place], [address], 09/12/2015 09:22:54 09/11/19 16 09/12/2015 hepat itis C Ab, serum HCV comment 1 SPRCS Non react laura HCV antib stacie scree n is consi stent with no HCV infec tion, unles s recen t infec tion is suspe cted or other evide nce exist s to indic ate HCV infec tion. Not Available [facility] (Lab) [address], [place], [address], 09/12/2015 09:22:54 09/11/19 16 09/12/2015 CMP, serum or plasm a glucose, serum 280 mg/dL 65-99 high Not Available [facility] [address], [place], [address], 09/12/2015 09:22:57 09/11/19 16 09/12/2015 CMP, serum or plasm a BUN 12 mg/dL 6-24 Not Available [facility] (Lab) [address], [place], [address], 09/12/2015 09:22:57 09/11/19 16 09/12/2015 CMP, serum or plasm a creatinine, serum 1.07 mg/dL 0.76-1 .27 Not Available [facility] (Lab) [address], [place], [address], 09/12/2015 09:22:57 09/11/19 16 09/12/2015 CMP, serum or plasm a eGFR if nonafricn AM 76 mL/mi n/1.7 3 >59 Not Available [facility] (Lab) [address], [place], [address], 09/12/2015 09:22:57 09/11/19 16 09/12/2015 CMP, serum or plasm a eGFR if 87 mL/mi n/1.7 3 >59 Not Available [facility] (Lab) [address], [place], [address], 09/12/2015 09:22:57 09/11/19 16 09/12/2015 CMP, serum or plasm a BUN/creatini ne ratio 11 9-20 Not Available [facility] (Lab) [address], [place], [address], 09/12/2015 09:22:57 09/11/19 16 09/12/2015 CMP, serum or plasm a sodium, serum 142 mmol/ L 134-14 4 Not Available [facility] (Lab) [address] [place], [address], 09/12/2015 09:22:57 09/11/19 16 09/12/2015 CMP, serum or plasm a potassium, serum 4.5 mmol/ L 3.5-5. 2 Not Available [facility] (Lab) [address] [place], [address], 09/12/2015 09:22:57 09/11/19 16 09/12/2015 CMP, serum or plasm a chloride, serum 104 mmol/ L 97-108 Not Available [facility] (Lab) [address], [place], [address], 09/12/2015 09:22:57 09/11/19 16 09/12/2015 CMP, serum or plasm a carbon dioxide, total 21 mmol/ L 18-29 Not Available [facility] (Lab) [address], [place], [address], 09/12/2015 09:22:57 09/11/1909/12/2015 CMP, serum or plasm a calcium, serum 8.8 mg/dL 8.7-10 .2 Not Available [facility] (Lab) [address], [place], [address], 09/12/2015 09:22:57 09/11/1909/12/2015 CMP, serum or plasm a protein total serum 7.1 g/dL 6.0-8. 5 Not Available [facility] (Lab) [address] [place], [address], 09/12/2015 09:22:57 09/11/1909/12/2015 CMP, serum or plasm a albumin, serum 3.9 g/dL 3.5-5. 5 Not Available [facility] (Lab) [address] [place], [address], 09/12/2015 09:22:57 09/11/1909/1109/12/2015 CMP, serum or plasm a globulin total 3.2 g/dL 1.5-4. 5 Not Available [facility] (Lab) [address] [place], [address], 09/12/2015 09:22:57 09/11/19 16 09/12/2015 CMP, serum or plasm a A/G ratio 1.2 1.1-2. 5 Not Available [facility] (Lab) [address] [place], [address], 09/12/2015 09:22:57 09/11/19 16 09/12/2015 CMP, serum or plasm a bilirubin total 0.2 mg/dL 0.0-1. 2 Not Available [facility] (Lab) [address] [facility], [place], [address], 09/12/2015 09:22:57 09/11/19 16 09/12/2015 CMP, serum or plasm a alkaline phosphatase ser 70 IU/L 39-117 Not Available [facility] (Lab) [address] [place], [address], 09/12/2015 09:22:57 09/11/19 16 09/12/2015 CMP, serum or plasm a AST (SGOT) 21 IU/L 0-40 Not Available [facility] (Lab) [address] [place], [address], 09/12/2015 09:22:57 09/11/19 16 09/12/2015 CMP, serum or plasm a ALT (SGPT) 26 IU/L 0-44 Not Available [facility] (Lab) [address] [place], [address], 09/12/2015 09:22:57 09/11/19 16 09/12/2015 TSH, serum or plasm a TSH 3.230 uIU/m L 0.450- 4.500 Not Available [facility] (Lab) [address] [place], [address], 09/12/2015 09:22:58 09/11/19 16 09/12/2015 PSA, serum or plasm a prostate specific Ag, serum 2.1 NG/mL 0.0-4. 0 Ely ECLIA metho dolog y. . Accor zakia to the Ameri can [employer]rolo gical Assoc [...] kits canno t be used inter rebolledo eabl . Resul ts canno t be inter prete d as absol [place]-biloxi evide nce of the prese nce or absen ce of [facility]. Not Available [facility] (Lab) [address] [place], [address], 09/12/2015 09:22:59 Result Notes None recorded. Problems Name Problem SNOMED Code Status Onset Date Resolution Date Notes Provider Name and Address Organization Details Recorded Time Diabetes mellitus 61684064 Active ANA Busch Attn: Accounting ,[address] [place], [address] , [facility] 6 11:28:28 Blood pressure above reference range 63707922 Active ANA Busch Attn: Accounting ,[address] [place], [address] , [facility] 6 11:28:28 Problem Notes None recorded. Procedures Surgical History Date Name Laterality Status Provider Name and Address Organization Details Recorded Time 3 Appendectomy completed Dorothea Bales MA [facility] 09/11/2015 10:27:24 Imaging Results None recorded. [...] in Arterial blood by Pulse oximetry Systolic And Diastolic Provider Name and Address Organization Details Last Updated DateTime 6 82 /min 18 /min 25.2 kg/m2 170.18 cm 98.5 [degF] 70377.3 7157 g 98 % 98 % 140/80 mm[Hg] Dorothea Bales MA [facility] 6 10:27:24 Social History Question Answer Notes LastModified by Organizat ion Details LastModified Time Tobacco Smoking Status Never Smoker Dorothea Bales MA null, [facility] 09/11/2015 10:27:23 Which Illicit Or Recreational Drugs Have You Used? Denies Use Information not available 09/11/2015 Do You Use Protection During Sex? No Information not available 09/11/2015 Are You Sexually Active? Yes Information not available 09/11/2015 How Much Tobacco Do You Smoke? No [email or web address] Information not available 09/11/2015 Sex: Unknown Functional [...] Response Coronary Artery Disease N Other N Atrial Fibrillation N High Blood Pressure N Kidney or Bladder Problems N Thyroid Problems N GI Problems N Depression N COPD N Blood Clots N Skin Problems N Anemia N Heart Attack ([place]) N Anxiety Disorder N Diabetes Y Muscle, Joint, or Bone Problems N Seizures/Epilepsy N Acid Reflux (GERD) N Cancer N Stroke N Asthma N Allergies N High Cholesterol Y Hepatitis N Liver Disease N Headaches N Heart Failure N Osteoporosis N Past Encounters Encounter ID Performer Location Encounter Start Date Encounter Closed Date Diagnosis/Indication Diagnosis SNOMED-CT Code Diagnosis ICD10 Code Diagnosis IMO Codes Diagnosis Note [id number] Demetrio Mathis MD [address] [address] 09/11/2015 10:08:16 09/11/2015 11:32:19 Diabetes mellitus 39000170 E11.9 Fasting VW=948. No physical abnormalit ies on exam -Routine labs today, including A1C -Continue current meds w/ close FU Blood pres sure above reference range 28750596 I10 BP 140/80 no dx. of HTN Discussed implicatio ns for health and the need for lifestyle changes, namely limiting sodium and increasing physical activity. Adult heal th examination 285535933 Z00.00 PE unremarkab le. Routine labs Continue current meds Consent signed to obtain records from previous PCP Dr. Marissa SERRATO in one month for FU. Health Concerns Section Related Observation LastModified by Organization Detai ls LastModified Time None Recorded Concern Status LastModified by Organization Details LastModified Time None Recorded Advance Directives Directive None Recorded Payers Insurance Date Sequence Insurance Name Policy Number Policy Isaac Covered Member ID Isaac Member ID Guarantor Name 09/29/2015 1 [employer] [id number] Chris Aguilar [id number] Chris Aguilar Notes Date Note Type Note Provider Name and Address Organization Details Recorded Time 09/11/2015 text/html DiabetesReported by PatientHPIFor self care, patient reportsnot monitoring home glucose,not seeing eye doctor yearly,not checking feet regularly, andnot taking aspirin daily. For duration, patient reportschronic. For onset/timing, patient reportsdiagnosed on: (per pt. years ago). For control, patient reportsusually well controlled,improved since last visit, andnormal range of home blood sugars (in the low 100s). For compliance, patient reportscompliant with medications,compliant with follow-up visits,compliant with diet, andcompliant with home glucose monitoring. For associated symptoms, patient reportsno weight gain,no weight loss,no dizziness,no sweats,no headaches,no confusion,no increased thirst,no increased appetite,no increased urination,no blurred vision,no numbness of feet, andno calluses on feet.No care in over a year. States that taking medications...had a lot of refills. Could not recall what his most recent set of lab values were. Previously seeing Dr. Ann in [place] and changed due to insurance. ALYSIA BuschC Attn: Accounting,[address] [place], [address], [place] [facility] 09/11/2015 11:29:01
--- OUTSIDE RECORDS SUMMARY | 2024-12-29 15:27 | XMS_ITS | Clinical Summary ---
Author Organization [facility] [employer] Address [address] [place] [address] Care Team Providers Care Sustainable Systems Analyst Name Role Phone Grzegorz Perales MD Primary Care Provider [phone] Source Comments [facility] [employer],non-owned Affiliates and Associated Physician Practices is amultiple site organization consisting of ambulatory clinics and hospital sitesin [place], [place], [place] and [place]. This disclosure is being madepursuant to the Care Everywhere program and may not contain all information available regarding this patient. Last updated 17.[facility] [employer] Allergies No known active allergies Medications * [...] 12:59 AM CDT Height 170.2 cm (5' 7) 08/16/2016 12:59 AM CDT Body Mass Index [...] 2006 ZOSTER VACCINE (1 of 2) 2006 DEPRESSION SCREENING 03/30/2024 COVID-19 VACCINE (1 - 2023-2 5 season) 2024 INFLUENZA VACCINE (#1) 2024 Respiratory Syncytial Virus (RSV) Vaccine Pt: [...] complete this topic Insurance PAYOR GENERIC Comp [employer] Care Teams Sustainable Systems Analyst Relationship Specialty Start Date End Date Grzegorz Perales MD [address] [place] [address] PCP - General Family Medicine 08/16/16
--- OUTSIDE RECORDS SUMMARY | 2024-12-29 15:27 | XMS_ITS | Clinical Summary ---
Author Organization [facility] Address [address] [place] [address] Care Team Providers Care Air Tool Operator Name Role Phone Unavailable Primary Care Provider [...] 9:17 AM CDT Height 170.2 cm (5' 7) 12/26/2014 9:17 AM CDT Body Mass Index 25.53 12/26/2014 9:17 AM CDT Plan of Treatment Health Maintenance Due Date Last Done Comments Colorectal Cancer Screening Colonoscopy (10 Years) 1955 DTaP, Tdap and Td Vaccines ( 1 - Tdap) 1975 Pneumococcal Vaccine: 50+ Ye ars (1 of 1 - PCV) 2006 Zoster Vaccines (1 of 2) 2006 COVID-19 Vaccine ( - 2023-2 5 season) 2024 RSV Immunization or 60+ Years (1 - [...] Routine 10/12/2014 10:57 AM CDT COLONOSCOPY Routine FLOW TRADER from Last 3 Months or Most Recently Relevant to Health Maintenance Results * HEPATITIS C ANTIBODY (10/12/2014 10:57 AM CDT) HEPATITIS C AB NON-REACT HORTENSIA NON-REACT HORTENSIA [facility] TO EPIC CONVERSION SIGNAL TO CUTOFF 0.03 <1.00 [facility] TO EPIC CONVERSION Comment: Result Comment: Test Performed at: [facility] [address] [place] [address] MICHELLE ARRINGTON DO,MPH 10/12/2014 10:5 7 AM CDT 10/12/2014 10:57 AM CDT Narrative [facility] TO EPIC CONVERSION - 10/13/2014 10:54 AM CDT Result Communication: No patient communication needed at this time Maxx Lozoya MD LABORATORY Final Result Performing Organization Address [facility]/ZIP Co de Phone Number [facility] TO EPIC CONVERSION * Colonoscopy ( FLOW TRADER) Narrative [facility] TO EPIC CONVERSION - FLOW TRADER Documented hx of procedure Procedure Note Lalitha Parisi MD - 01/31/2018 Documented hx of procedure Lalitha Max Md, MD GI PROCEDURE ORDERABLES Final Result Performing Organization Address [facility]/ZIP Co de Phone Number [facility] TO EPIC CONVERSION from Last 3 Months or Most Recently Relevant to Health Maintenance
[2024-12-29 19:01] LABS: Hematocrit 38.1 % (42.0-52.0); Hemoglobin 12.3 g/dL (14.0-18.0); Immature Granulocyte Percent A 0.2 % (0-0.5); Lymphocytes Absolute Auto 2.30 K/mm3 (0.9-3.2); Mean Corpuscular HGB Conc 32.3 g/dl (32-36); Mean Corpuscular Hemoglobin 30.5 pg (26-34); Mean Corpuscular Volume 94.5 fl (80-100); Nucleated Red Blood Cells Absolute Auto 0.000 K/mm3 (0.0-0.012); Nucleated Red Blood Cells Perc 0.0 % (0.0-0.2); Platelet Count Result 202 k/mm3 (150-375); Red Blood Count 4.03 M/mm3 (4.6-6.20); White Blood Count 8.7 K/mm3 (4.5-10.0)
[2024-12-29 19:10] LABS: Alanine Aminotransferase 18 U/L (6-50); Albumin Level 3.9 g/dL (3.5-5.1); Alkaline Phosphatase 70 U/L (38-126); Anion Gap 9 mmol/L (4-12); Aspartate Amino Transferase 27 U/L (17-59); Bilirubin,Total 0.3 mg/dL (0.2-1.3); Blood Urea Nitrogen 16 mg/dL (9-20); Calcium 9.1 mg/dL (8.4-10.2); Carbon Dioxide 24 mmol/L (22-30); Chloride 106 mmol/L (98-107); Estimated Glomerular Filt Rate > 60; Glucose 249 mg/dL (65-110); Potassium 4.3 mmol/L (3.4-5.0); Sodium 139 mmol/L (137-145); Total Protein 7.7 g/dL (6.3-8.2)
[2024-12-29 20:18] LABS: Hemoglobin A1C 9.6 % (<5.7)
[2024-12-29 20:21] LABS: Vitamin B12 308.0 pg/mL (239-931)
== END 2024-12-29 15:25 | disposition home or self-care (01) ==
LOC: ANHGOSHLAB 15:25
DX: E11.65 Type 2 diabetes mellitus with hyperglycemia (principal); D64.9 Anemia, unspecified; R53.83 Other fatigue; Z79.4 Long term (current) use of insulin
CPT/HCPCS: 36415; 80053; 82607; 82746; 83036; 85025